=== PATIENT | female | born 1930 | race Caucasian/White ===

== ENCOUNTER 2016-11-24 14:34 | Emergency (ER) | payer MEDICARE, OTHER ==
[2016-11-24] MEDS ORDERED: SODIUM CHLORIDE 0.9% 1,000 ML IV STA ×2 (14:41)
[2016-11-24 14:45] VITALS: RESP 18
--- NOTE | 2016-11-24 14:46 | ED ---
Nausea/Vomiting/Diarrhea HPI - General Stated complaint: hypertension Time Seen by Provider: 11/24/16 14:34 Source: patient, RN notes reviewed, old records reviewed - History of Present Illness Initial comments: This is a 86-year-old female history of hypertension who states she woke up feeling nauseated this morning. She's had nausea and vomiting. She was seen by visiting nurse this morning and found have a blood pressure 160/82. EMS was called because the symptoms she was found have a blood pressure 199/100 she denies any fevers chills or sweats no chest pain no shortness of breath no overt abdominal pain at this time. Of note she was just discharged from the hospital a week ago after being treated for pneumonia. She currently is not nauseated she was not given any anti-nausea medication per EMS. She does deny any headache dizziness blurry vision or other symptoms at this time. MD complaint: nausea, vomiting - Related Data Home Medications Medication Instructions Recorded Confirmed ALPRAZolam [Xanax] 0.5 mg PO BID 11/24/16 11/24/16 Aspirin 81 mg PO QAM 11/24/16 11/24/16 Atenolol [Tenormin] 25 mg PO HS 11/24/16 11/24/16 Cholecalciferol (Vitamin D3) 2,000 unit PO DAILY 11/24/16 11/24/16 [Vitamin D3] Clopidogrel [Plavix] 75 mg PO DAILY 11/24/16 11/24/16 Fluticasone Nasal [place] [Flonase 1 spr EA NOSTRIL DAILY 11/24/16 11/24/16 Nasal [place]] Gabapentin [Neurontin] 300 mg PO DAILY 11/24/16 11/24/16 Losartan [Cozaar] 50 mg PO DAILY 11/24/16 11/24/16 Memantine HCl/Donepezil HCl 1 cap PO DAILY 11/24/16 11/24/16 [Namzaric Titration Pack] Nitroglycerin Sl Tabs [Nitrostat] 0.4 mg SUBLINGUAL Q5M PRN 11/24/16 11/24/16 Sertraline [Zoloft] 50 mg PO PC-BRKFST 11/24/16 11/24/16 Simvastatin [Zocor] 40 mg PO DAILY 11/24/16 11/24/16 cloNIDine 0.2 MG/24HR PATCH 1 patch TRANSDERM FR 11/24/16 11/24/16 [Catapres-TTS] cloNIDine HCL [Catapres] 0.1 mg PO DAILY PRN 11/24/16 11/24/16 metFORMIN HCL 1,000 mg PO BID 11/24/16 11/24/16 Previous Rx's Medication Instructions Recorded Magnesium 200 mg PO DAILY #14 tablet 11/24/16 Allergies Allergy/AdvReac Type Severity Reaction Status Date / Time No Known Allergies Allergy Verified 11/24/16 15:45 Review of Systems ROS Statement: Those systems with pertinent positive or pertinent negative responses have been documented in the HPI. ROS Other: All systems not noted in ROS Statement are negative. General Exam - General Exam Comments Initial Comments: This is a well-developed well-nourished awake alert oriented 3 female General appearance: alert, in no apparent distress Head exam: Present: atraumatic, normocephalic, normal inspection Eye exam: Present: normal appearance, PERRL, EOMI. Absent: scleral icterus, conjunctival injection, periorbital swelling ENT exam: Present: mucous membranes dry Neck exam: Present: normal inspection. Absent: tenderness, meningismus, lymphadenopathy Respiratory exam: Present: normal lung sounds bilaterally. Absent: respiratory distress, wheezes, rales, rhonchi, stridor Cardiovascular Exam: Present: regular rate, normal rhythm, normal heart sounds. Absent: systolic murmur, diastolic murmur, rubs, gallop, clicks GI/Abdominal exam: Present: soft, normal bowel sounds. Absent: distended, tenderness, guarding, rebound, rigid Extremities exam: Present: normal inspection, full ROM, normal capillary refill. Absent: tenderness, pedal edema, joint swelling, calf tenderness Back exam: Present: normal inspection Neurological exam: Present: alert, oriented X3, CN II-XII intact Psychiatric exam: Present: normal affect, normal mood Skin exam: Present: warm, dry, intact, normal color. Absent: rash Course Vital Signs 11/24/16 11/24/16 11/24/16 14:37 15:00 16:38 Temperature 97.7 F Pulse Rate 65 60 60 Respiratory 18 18 18 Rate Blood Pressure 202/99 170/82 166/87 O2 Sat by Pulse 96 98 Oximetry 11/24/16 17:13 Temperature Pulse Rate 61 Respiratory 18 Rate Blood Pressure 147/76 O2 Sat by Pulse 96 Oximetry Medical Decision Making - Medical Decision Making The patient is feeling much improved at this time I did discuss findings with her and her family member was present. Magnesium is 1.4 she has mildly elevated lipase at 368. Patient be discharged with follow-up with her doctor and return when necessary the patient was noted be able ably without any difficulty whatsoever. She has no further symptoms. - Lab Data Result diagrams: 11/24/16 14:47 11/24/16 14:47 Lab Results 11/24/16 11/24/16 11/24/16 Range/Units 14:47 14:47 14:47 WBC 11.3 H (3.8-10.6) k/uL RBC 4.18 (3.80-5.40) m/uL Hgb 12.4 (11.4-16.0) gm/dL Hct 38.4 (34.0-46.0) % MCV 92.0 (80.0-100.0) fL MCH 29.7 (25.0-35.0) pg MCHC 32.3 (31.0-37.0) g/dL RDW 13.1 (11.5-15.5) % Plt Count 326 (150-450) k/uL Neutrophils % 73 % Lymphocytes % 20 % Monocytes % 4 % Eosinophils % 1 % Basophils % 0 % Neutrophils # 8.2 H (1.3-7.7) k/uL Lymphocytes # 2.3 (1.0-4.8) k/uL Monocytes # 0.5 (0-1.0) k/uL Eosinophils # 0.1 (0-0.7) k/uL Basophils # 0.0 (0-0.2) k/uL Sodium 137 (137-145) mmol/L Potassium 4.6 (3.5-5.1) mmol/L Chloride 101 (98-107) mmol/L Carbon Dioxide 20 L (22-30) mmol/L Anion Gap 16 mmol/L BUN 13 (7-17) mg/dL Creatinine 0.67 (0.52-1.04) mg/dL Est GFR (MDRD) Af Amer >60 (>60 ml/min/1.73 sqM) Est GFR (MDRD) Non-Af >60 (>60 ml/min/1.73 sqM) Glucose 191 H (74-99) mg/dL Calcium 9.7 (8.4-10.2) mg/dL Magnesium 1.4 L (1.6-2.3) mg/dL Total Bilirubin 0.2 (0.2-1.3) mg/dL AST 26 (14-36) U/L ALT 30 (9-52) U/L Alkaline Phosphatase 76 (38-126) U/L Total Creatine Kinase 23 L (30-135) U/L CK-MB (CK-2) 0.4 (0.0-2.4) ng/mL CK-MB (CK-2) Rel Index 1.7 Total Protein 7.5 (6.3-8.2) g/dL Albumin 4.1 (3.5-5.0) g/dL Amylase 81 (30-110) U/L Lipase 368 H (23-300) U/L - EKG Data -: EKG Interpreted by Or EKG shows normal: sinus rhythm (Sinus rhythm rate is 65. Interval 188 QRS 86 QT /QTC of 42/[address]-T wave changes.) - Radiology Data Radiology results: report reviewed (I did review the imaging and reports no acute findings.), image reviewed Disposition Clinical Impression: Gastritis, Nausea & vomiting, Dehydration, Hypomagnesemia, Hypertension Disposition: HOME SELF-CARE Condition: Good Instructions: Hypomagnesemia (ED), Dehydration (ED), Gastritis (ED) Prescriptions: Magnesium 200 mg PO DAILY #14 tablet Referrals: Caleb Schafer MD [Primary Care Provider] - 1-2 days
[2016-11-24] MEDS ORDERED: ONDANSETRON 4 MG/2 ML VIAL IVP STA (14:56)
[2016-11-24 15:02] LABS: Basophils % (A) 0 %; CH 29.3; Eosinophils # (A) 0.1 k/uL (0-0.7); Eosinophils % (A) 1 %; HCT 38.4 % (34.0-46.0); HDW 2.32; HGB 12.4 gm/dL (11.4-16.0); Luc # (Auto) 0.15; Luc % (Auto) 1; Lymphocytes # (A) 2.3 k/uL (1.0-4.8); Lymphocytes % (A) 20 %; MCH 29.7 pg (25.0-35.0); MCHC 32.3 g/dL (31.0-37.0); Mean Platelet Volume 7.7; Monocytes # (A) 0.5 k/uL (0-1.0); Monocytes % (A) 4 %; Neutrophils # (A) 8.2 k/uL (1.3-7.7); Neutrophils % (A) 73 %; RBC 4.18 m/uL (3.80-5.40); RDW 13.1 % (11.5-15.5); WBC 11.3 k/uL (3.8-10.6); WBC (Perox) 11.21
[2016-11-24 15:10] LABS: ALT 30 U/L (9-52); AST 26 U/L (14-36); Alkaline Phosphatase 76 U/L (38-126); Amylase 81 U/L (30-110); Anion Gap 16 mmol/L; Blood Urea Nitrogen 13 mg/dL (7-17); Calcium 9.7 mg/dL (8.4-10.2); Carbon Dioxide 20 mmol/L (22-30); Chloride 101 mmol/L (98-107); Glucose 191 mg/dL (74-99); Magnesium 1.4 mg/dL (1.6-2.3); Non-African American GFR(MDRD) >60 (>60 ml/min/1.73 sqM); Potassium 4.6 mmol/L (3.5-5.1); Sodium 137 mmol/L (137-145); Total Bilirubin 0.2 mg/dL (0.2-1.3); Total Protein 7.5 g/dL (6.3-8.2)
[2016-11-24 15:29] LABS: Creatine Kinase MB 0.4 ng/mL (0.0-2.4)
--- NOTE | 2016-11-24 15:31 | XR ---
EXAMINATION TYPE: XR chest 2V DATE OF EXAM: 11/24/2016 COMPARISON: None HISTORY: Cough and recent pneumonia TECHNIQUE: Frontal and lateral views of the chest are obtained. FINDINGS: There is no focal air space opacity, pleural effusion, or pneumothorax seen. The cardiac silhouette size is within normal limits. The osseous structures are intact. Mild degenerative [place] of the thoracic spine are noted. Hypertrophic changes of the distal first ribs. Moderate calcifica tions of the descending thoracic aorta. IMPRESSION: No acute cardiopulmonary process. No focal consolidation to suggest pneumonia.
[2016-11-24 17:14] VITALS: BP 147/76; PULSE 61
[2016-11-24 17:42] LABS: Appearance,Urine Clear (Clear); Bilirubin,Urine Negative (Negative); Glucose,Urine (UA) Negative (Negative); Ketones,Urine Negative (Negative); Leukocyte Esterase,Urine Negative (Negative); Nitrite,Urine Negative (Negative); Particle Count 797; Protein,Urine 2+ (Negative); RBC,Urine 3 /hpf (0-5); Specific Gravity,Urine 1.011 (1.001-1.035); Squamous Epithelial Cell,Urine <1 /hpf (0-4); UA Billing (MACRO vs. MICRO) MICRO; Urobilinogen,Urine <2.0 mg/dL (<2.0); WBC,Urine 1 /hpf (0-5)
[2016-11-24 17:46] VITALS: TEMP 98.8
== END 2016-11-24 17:43 | disposition home or self-care (01) ==
LOC: EC 14:34
DX: K29.70 Gastritis, unspecified, without bleeding (principal); E86.0 Dehydration; I10 Essential (primary) hypertension; E83.42 Hypomagnesemia; Z79.82 Long term (current) use of aspirin; Z79.01 Long term (current) use of anticoagulants; Z79.84 Long term (current) use of oral hypoglycemic drugs; Z79.899 Other long term (current) drug therapy
CPT/HCPCS: 36415; 93005; 80053; 82150; 82550; 82553; 83690; 83735; 85025; 81001; 71020; 99284; 96374; 96361 ×3; J2405

== ENCOUNTER 2017-04-25 00:55 | Inpatient (IN) | payer MEDICARE, OTHER ==
[2017-04-25 02:26] LABS: Basophils # (A) 0.1 k/uL (0-0.2); Basophils % (A) 1 %; Eosinophils # (A) 0.2 k/uL (0-0.7); Eosinophils % (A) 2 %; HCT 33.5 % (34.0-46.0); HGB 9.9 gm/dL (11.4-16.0); Hypochromasia Slight; Lymphocytes # (A) 3.9 k/uL (1.0-4.8); Lymphocytes % (A) 36 %; MCH 26.3 pg (25.0-35.0); MCHC 29.5 g/dL (31.0-37.0); MCV 89.1 fL (80.0-100.0); Mean Platelet Volume 7.4; Monocytes # (A) 0.6 k/uL (0-1.0); Monocytes % (A) 6 %; Neutrophils # (A) 6.1 k/uL (1.3-7.7); Neutrophils % (A) 55 %; Platelet Count 374 k/uL (150-450); RBC 3.76 m/uL (3.80-5.40); RDW 13.4 % (11.5-15.5)
[2017-04-25 02:32] LABS: Partial Thromboplastin Time 22.2 sec (22.0-30.0); Prothrombin Time 9.7 sec (9.0-12.0)
[2017-04-25 02:33] LABS: ALT 13 U/L (9-52); AST 18 U/L (14-36); Albumin 3.7 g/dL (3.5-5.0); Alkaline Phosphatase 77 U/L (38-126); Anion Gap 14 mmol/L; Blood Urea Nitrogen 16 mg/dL (7-17); Calcium 9.8 mg/dL (8.4-10.2); Carbon Dioxide 27 mmol/L (22-30); Chloride 102 mmol/L (98-107); Glucose 172 mg/dL (74-99); Potassium 4.4 mmol/L (3.5-5.1); Sodium 143 mmol/L (137-145); Total Bilirubin 0.1 mg/dL (0.2-1.3); Total Protein 6.9 g/dL (6.3-8.2)
[2017-04-25 02:56] LABS: Creatine Kinase MB 0.5 ng/mL (0.0-2.4); Troponin I 0.032 ng/mL (0.000-0.034)
--- NOTE | 2017-04-25 03:39 | ED ---
GI Bleed HPI - General Chief complaint: GI Bleed Stated complaint: rectal bleeding Time Seen by Provider: 04/25/17 01:21 Source: patient, EMS Mode of arrival: EMS Limitations: no limitations - History of Present Illness Initial comments: This patient is an 86-year-old woman who presents to be evaluated for rectal bleeding. The patient states that the symptoms had come on tonight. She had a bowel movement and noticed that there was a moderate amount of dark red blood that she had passed. The patient subsequently had another bowel movement and when there was blood associated with this when she informed her daughter then had her brought to the emergency department for evaluation. The patient states that she is otherwise not having any symptoms. She denies chest pain, dyspnea, diaphoresis, palpitations, lightheadedness or syncope. She is not having any abdominal or perianal pains. She did have a similar episode last year, and states that she was admitted at [facility] for that episode. MD complaint: gross hematochezia -: hour(s) Severity scale (1-10): 0 Quality: painless Consistency: intermittent Improves with: none Worsens with: none Context: history of GI bleed Associated Symptoms: denies other symptoms Treatments Prior to Arrival: none - Related Data Home Medications Medication Instructions Recorded Confirmed ALPRAZolam [Xanax] 0.5 mg PO BID 11/24/16 11/24/16 Aspirin 81 mg PO QAM 11/24/16 11/24/16 Atenolol [Tenormin] 25 mg PO HS 11/24/16 11/24/16 Cholecalciferol (Vitamin D3) 2,000 unit PO DAILY 11/24/16 11/24/16 [Vitamin D3] Clopidogrel [Plavix] 75 mg PO DAILY 11/24/16 11/24/16 Fluticasone Nasal [place] [Flonase 1 spr EA NOSTRIL DAILY 11/24/16 11/24/16 Nasal [place]] Gabapentin [Neurontin] 300 mg PO DAILY 11/24/16 11/24/16 Losartan [Cozaar] 50 mg PO DAILY 11/24/16 11/24/16 Memantine HCl/Donepezil HCl 1 cap PO DAILY 11/24/16 11/24/16 [Namzaric Titration Pack] Nitroglycerin Sl Tabs [Nitrostat] 0.4 mg SUBLINGUAL Q5M PRN 11/24/16 11/24/16 Sertraline [Zoloft] 50 mg PO PC-BRKFST 11/24/16 11/24/16 Simvastatin [Zocor] 40 mg PO DAILY 11/24/16 11/24/16 cloNIDine 0.2 MG/24HR PATCH 1 patch TRANSDERM FR 11/24/16 11/24/16 [Catapres-TTS] cloNIDine HCL [Catapres] 0.1 mg PO DAILY PRN 11/24/16 11/24/16 metFORMIN HCL 1,000 mg PO BID 11/24/16 11/24/16 Previous Rx's Medication Instructions Recorded Magnesium 200 mg PO DAILY #14 tablet 11/24/16 Allergies Allergy/AdvReac Type Severity Reaction Status Date / Time No Known Allergies Allergy Verified 11/24/16 15:45 Review of Systems ROS Statement: Those systems with pertinent positive or pertinent negative responses have been documented in the HPI. ROS Other: All systems not noted in ROS Statement are negative. Constitutional: Denies: fever, chills, weakness Respiratory: Denies: cough, dyspnea Cardiovascular: Denies: chest pain, palpitations, orthopnea, edema, syncope Gastrointestinal: Reports: hematochezia. Denies: abdominal pain, vomiting, diarrhea, hematemesis, melena Genitourinary: Denies: dysuria, hematuria Musculoskeletal: Denies: back pain Skin: Denies: rash Neurological: Denies: headache, weakness, numbness Hematological/Lymphatic: Denies: easy bleeding Past Medical History Past Medical History: Hypertension, Pneumonia, Rheumatoid Arthritis (RA) Additional Past Medical History / Comment(s): Vaginal mass History of Any Multi-Drug Resistant Organisms: MRSA Date of last positivie culture/infection: 2014 MDRO Source:: shoulder Past Surgical History: Appendectomy, Cholecystectomy, Hernia Repair Past Psychological History: No Psychological Hx Reported Smoking Status: Never smoker Past Alcohol Use History: None Reported Past Drug Use History: None Reported General Exam Limitations: no limitations General appearance: alert, in no apparent distress Head exam: Present: atraumatic, normocephalic Eye exam: Present: normal appearance. Absent: scleral icterus, conjunctival injection Respiratory exam: Present: normal lung sounds bilaterally. Absent: respiratory distress, wheezes, rales, rhonchi, stridor Cardiovascular Exam: Present: regular rate, normal rhythm, normal heart sounds. Absent: systolic murmur, diastolic murmur, rubs, gallop GI/Abdominal exam: Present: soft, normal bowel sounds. Absent: distended, tenderness, guarding, rebound, rigid, mass, pulsatile mass, hernia Rectal exam: Present: normal inspection, normal rectal tone, hemorrhoids (Small external hemorrhoid without evidence of acute bleeding), other (There is a small amount of dark red blood on exam). Absent: decreased rectal tone, mass, tenderness Extremities exam: Present: normal inspection, normal capillary refill. Absent: pedal edema, calf tenderness Back exam: Present: normal inspection. Absent: CVA tenderness (R), CVA tenderness (L) Neurological exam: Present: alert Skin exam: Present: warm, dry, intact, normal color. Absent: rash Course Vital Signs 04/25/17 04/25/17 04/25/17 01:00 02:00 03:17 Temperature 98.4 F Pulse Rate 60 54 L 54 L Respiratory 16 16 18 Rate Blood Pressure 170/74 141/81 125/65 O2 Sat by Pulse 96 95 95 Oximetry Medical Decision Making - Medical Decision Making This patient is an 86-year-old woman presenting with dark red blood per rectum. She is hemodynamically stable. Patient is admitted under her primary physician, and he requests GI consultation. Type and crossmatch performed. To have serial H&H. - Lab Data Result diagrams: 04/25/17 01:08 04/25/17 01:08 Lab Results 04/25/17 04/25/17 04/25/17 Range/Units 01:08 01:08 01:08 WBC 11.0 H (3.8-10.6) k/uL RBC 3.76 L (3.80-5.40) m/uL Hgb 9.9 L (11.4-16.0) gm/dL Hct 33.5 L (34.0-46.0) % MCV 89.1 (80.0-100.0) fL MCH 26.3 (25.0-35.0) pg MCHC 29.5 L (31.0-37.0) g/dL RDW 13.4 (11.5-15.5) % Plt Count 374 (150-450) k/uL Neutrophils % 55 % Lymphocytes % 36 % Monocytes % 6 % Eosinophils % 2 % Basophils % 1 % Neutrophils # 6.1 (1.3-7.7) k/uL Lymphocytes # 3.9 (1.0-4.8) k/uL Monocytes # 0.6 (0-1.0) k/uL Eosinophils # 0.2 (0-0.7) k/uL Basophils # 0.1 (0-0.2) k/uL Hypochromasia Slight PT (9.0-12.0) sec INR (<1.2) APTT (22.0-30.0) sec Sodium 143 (137-145) mmol/L Potassium 4.4 (3.5-5.1) mmol/L Chloride 102 (98-107) mmol/L Carbon Dioxide 27 (22-30) mmol/L Anion Gap 14 mmol/L BUN 16 (7-17) mg/dL Creatinine 0.90 (0.52-1.04) mg/dL Est GFR (MDRD) Af Amer >60 (>60 ml/min/1.73 sqM) Est GFR (MDRD) Non-Af 59 (>60 ml/min/1.73 sqM) Glucose 172 H (74-99) mg/dL Calcium 9.8 (8.4-10.2) mg/dL Total Bilirubin 0.1 L (0.2-1.3) mg/dL AST 18 (14-36) U/L ALT 13 (9-52) U/L Alkaline Phosphatase 77 (38-126) U/L Total Creatine Kinase 29 L (30-135) U/L CK-MB (CK-2) 0.5 (0.0-2.4) ng/mL CK-MB (CK-2) Rel Index 1.7 Troponin I 0.032 (0.000-0.034) ng/mL Total Protein 6.9 (6.3-8.2) g/dL Albumin 3.7 (3.5-5.0) g/dL 04/25/17 Range/Units 01:08 WBC (3.8-10.6) k/uL RBC (3.80-5.40) m/uL Hgb (11.4-16.0) gm/dL Hct (34.0-46.0) % MCV (80.0-100.0) fL MCH (25.0-35.0) pg MCHC (31.0-37.0) g/dL RDW (11.5-15.5) % Plt Count (150-450) k/uL Neutrophils % % Lymphocytes % % Monocytes % % Eosinophils % % Basophils % % Neutrophils # (1.3-7.7) k/uL Lymphocytes # (1.0-4.8) k/uL Monocytes # (0-1.0) k/uL Eosinophils # (0-0.7) k/uL Basophils # (0-0.2) k/uL Hypochromasia PT 9.7 (9.0-12.0) sec INR 1.0 (<1.2) APTT 22.2 (22.0-30.0) sec Sodium (137-145) mmol/L Potassium (3.5-5.1) mmol/L Chloride (98-107) mmol/L Carbon Dioxide (22-30) mmol/L Anion Gap mmol/L BUN (7-17) mg/dL Creatinine (0.52-1.04) mg/dL Est GFR (MDRD) Af Amer (>60 ml/min/1.73 sqM) Est GFR (MDRD) Non-Af (>60 ml/min/1.73 sqM) Glucose (74-99) mg/dL Calcium (8.4-10.2) mg/dL Total Bilirubin (0.2-1.3) mg/dL AST (14-36) U/L ALT (9-52) U/L Alkaline Phosphatase (38-126) U/L Total Creatine Kinase (30-135) U/L CK-MB (CK-2) (0.0-2.4) ng/mL CK-MB (CK-2) Rel Index Troponin I (0.000-0.034) ng/mL Total Protein (6.3-8.2) g/dL Albumin (3.5-5.0) g/dL - EKG Data -: EKG Interpreted by [facility] EKG shows normal: sinus rhythm, axis (Normal), intervals (Normal), QRS complexes (Normal), ST-T waves (Normal) Rate: bradycardia (Rate 58 bpm) Disposition Clinical Impression: Gastrointestinal hemorrhage Disposition: ADMITTED IP TO THIS [facility] Condition: Good Referrals: Caleb Schafer MD [Primary Care Provider] - 1-2 days
[2017-04-25] MEDS ORDERED: NALOXONE 0.4 MG/ML 1 ML VIAL IV PRN ×2 (03:40→03:43)
[2017-04-25] MEDS ORDERED: ONDANSETRON 4 MG/2 ML VIAL IVP PRN (03:44)
[2017-04-25] MEDS ORDERED: ACETAMINOPHEN TAB 325 MG TAB PO PRN (03:44)
[2017-04-25] MEDS: SODIUM CHLORIDE 0.9% 1,000 ML IV SCH ×3 (04:26→20:17)
[2017-04-25 04:48] LABS: Glucose,Whole Blood 134 mg/dL (75-99)
[2017-04-25 05:35] LABS: Basophils % (A) 0 %; Eosinophils # (A) 0.2 k/uL (0-0.7); Eosinophils % (A) 2 %; HCT 28.5 % (34.0-46.0); HGB 8.8 gm/dL (11.4-16.0); Hypochromasia Slight; Lymphocytes # (A) 3.7 k/uL (1.0-4.8); Lymphocytes % (A) 33 %; MCH 27.1 pg (25.0-35.0); MCHC 30.7 g/dL (31.0-37.0); MCV 88.2 fL (80.0-100.0); Mean Platelet Volume 7.7; Monocytes # (A) 0.7 k/uL (0-1.0); Monocytes % (A) 6 %; Neutrophils # (A) 6.4 k/uL (1.3-7.7); Neutrophils % (A) 57 %; Platelet Count 321 k/uL (150-450); RBC 3.23 m/uL (3.80-5.40); RDW 13.4 % (11.5-15.5); WBC 11.1 k/uL (3.8-10.6)
[2017-04-25 05:39] LABS: Anion Gap 10 mmol/L; Blood Urea Nitrogen 18 mg/dL (7-17); Calcium 9.2 mg/dL (8.4-10.2); Carbon Dioxide 26 mmol/L (22-30); Chloride 103 mmol/L (98-107); Glucose 126 mg/dL (74-99); Sodium 139 mmol/L (137-145)
[2017-04-25 05:44] LABS: Potassium 5.1 mmol/L (3.5-5.1)
--- NOTE | 2017-04-25 08:46 | P.CNPUL ---
History of Present Illness Consult date: 04/25/17 Reason for consult: other Chief complaint: GI bleed History of present illness: Consult dated 04/25/2017 This is an 86-year-old female who presented to the emergency department with complaints of rectal bleeding. The patient states that her symptoms came on 1 night prior to admission. She had a bowel movement and noticed that there was a moderate amount of dark red blood that past. She had a subsequent bowel movement in the same thing happened. Her daughter apparently brought her to the emergency room for that reason. Denies any abdominal pain and cramping. Denies any fever chills. No shortness breath chest pain nausea vomiting or diarrhea. Apparently did have a similar episode a year ago. Not sure what the outcome of that episode was. I did speak to the ER doctor last night. Because she was hemodynamically stable and because she did not have a coagulopathy based on PT/INR and PTT, and because she was not having any additional bleeding in the emergency room, we decided to admit her to 6 selective. There is no beds there she came to the ICU as an overflow patient. She certainly pretty stable this morning. Review of Systems A 12 point review of system is positive for all lately GI bleed. She is asymptomatic otherwise and never had any abdominal pain or discomfort. Past Medical History Past Medical History: Dementia, Diabetes Mellitus, Hypertension, Pneumonia, Rheumatoid Arthritis (RA) Additional Past Medical History / Comment(s): Vaginal mass; MRSA 2014 (right shoulder); Systemic Lupus; Angina History of Any Multi-Drug Resistant Organisms: MRSA Date of last positivie culture/infection: 2014 MDRO Source:: shoulder Past Surgical History: Appendectomy, Cholecystectomy, Hernia Repair Past Anesthesia/Blood Transfusion Reactions: No Reported Reaction Past Psychological History: No Psychological Hx Reported Smoking Status: Never smoker Past Alcohol Use History: None Reported Past Drug Use History: None Reported - Past Family History Son(s) Additional Family Medical History / Comment(s): multiple sclerosis Medications and Allergies Home Medications Medication Instructions Recorded Confirmed Type ALPRAZolam [Xanax] 0.5 mg PO BID 11/24/16 11/24/16 History Aspirin 81 mg PO QAM 11/24/16 11/24/16 History Atenolol [Tenormin] 25 mg PO HS 11/24/16 11/24/16 History Cholecalciferol (Vitamin D3) 2,000 unit PO DAILY 11/24/16 11/24/16 History [Vitamin D3] Clopidogrel [Plavix] 75 mg PO DAILY 11/24/16 11/24/16 History Fluticasone Nasal [place] [Flonase 1 spr EA NOSTRIL DAILY 11/24/16 11/24/16 History Nasal [place]] Gabapentin [Neurontin] 300 mg PO DAILY 11/24/16 11/24/16 History Losartan [Cozaar] 50 mg PO DAILY 11/24/16 11/24/16 History Magnesium 200 mg PO DAILY #14 tablet 11/24/16 Rx Memantine HCl/Donepezil HCl 1 cap PO DAILY 11/24/16 11/24/16 History [Namzaric Titration Pack] Nitroglycerin Sl Tabs [Nitrostat] 0.4 mg SUBLINGUAL Q5M PRN 11/24/16 11/24/16 History Sertraline [Zoloft] 50 mg PO PC-BRKFST 11/24/16 11/24/16 History Simvastatin [Zocor] 40 mg PO DAILY 11/24/16 11/24/16 History cloNIDine 0.2 MG/24HR PATCH 1 patch TRANSDERM FR 11/24/16 11/24/16 History [Catapres-TTS] cloNIDine HCL [Catapres] 0.1 mg PO DAILY PRN 11/24/16 11/24/16 History metFORMIN HCL 1,000 mg PO BID 11/24/16 11/24/16 History Allergies Allergy/AdvReac Type Severity Reaction Status Date / Time No Known Allergies Allergy Verified 11/24/16 15:45 Physical Exam Osteopathic Statement: *. No significant issues noted on an osteopathic structural exam other than those noted in the History and Physical/Consult. Vitals: Vital Signs Temp Pulse Pulse Resp BP BP Pulse Ox 04/25/17 04:27 97.8 F 57 L 18 127/58 96 04/25/17 04:17 97.8 F 54 L 14 125/62 04/25/17 03:17 54 L 18 125/65 95 04/25/17 02:00 54 L 16 141/81 95 04/25/17 01:00 98.4 F 60 16 170/74 96 Intake and Output 04/24/17 04/25/17 04/25/17 22:59 06:59 14:59 Intake Total 125 Balance 125 Intake: IV 125 Sodium Chloride 0.9% 1, 125 000 ml @ 125 mls/hr IV . Q8H [facility] Rx#:[id number] Other: Voiding Method Bedpan # Voids 1 Weight 84.7 kg No acute distress, oriented 3. Color is a bit pale. HEENT examination is grossly unremarkable. Mucous membranes are moist. No oral lesions. Neck supple. Full range of motion. No adenopathy thyromegaly or neck vein distention. Cardiovascular examination reveals regular rhythm rate. S1-S2 normal. No S3 or S4. No discernible murmur noted. Lungs reveal clear breath sounds. Her sounds are equal bilaterally. No adventitious lung sounds including wheezes rhonchi or crackles. Abdomen soft bowel sounds are heard. No masses or tenderness. Extremities are intact. No cyanosis clubbing or edema. Skin is without rash or lesion. Neurologic examination is brief but nonfocal. Results - Laboratory Findings CBC and BMP: 04/25/17 05:07 04/25/17 05:07 PT/INR, D-dimer PT 9.7 sec (9.0-12.0) 04/25/17 01:08 INR 1.0 (<1.2) 04/25/17 01:08 Abnormal lab findings: Abnormal Labs 04/25/17 04/25/17 04/25/17 01:08 01:08 01:08 WBC 11.0 H RBC 3.76 L Hgb 9.9 L Hct 33.5 L MCHC 29.5 L BUN Glucose 172 H POC Glucose (mg/dL) Total Bilirubin 0.1 L Total Creatine Kinase 29 L 04/25/17 04/25/17 04/25/17 04:44 05:07 05:07 WBC 11.1 H RBC 3.23 L Hgb 8.8 L Hct 28.5 L MCHC 30.7 L BUN 18 H Glucose 126 H POC Glucose (mg/dL) 134 H Total Bilirubin Total Creatine Kinase - Diagnostic Findings Chest x-ray: image reviewed (Labs x-rays a medications are reviewed.) Assessment and Plan Assessment: Assessment GI bleed, likely lower in nature Anemia, secondary to GI bleed. History of hypertension Hyperlipidemia Diabetes Diabetic neuropathy History of rheumatoid arthritis Previous history of MRSA infection Status post appendectomy, cholecystectomy, and hernia repair Plan: Plan dated 04/25/2017 The patient was admitted to the ICU as a 6 selective overflow. The patient seemed to be relatively stable. We'll continue to follow the patient closely. We'll monitor vital signs blood test, and other testing. Patient seemed relatively stable. Not having any difficulty breathing coughing wheezing chest pain chest discomfort palpitations nausea vomiting or diarrhea. No episodes of GI bleed so far this morning. Hemodynamics and respiratory status are stable. Time with Patient: Greater than 30
--- NOTE | 2017-04-25 08:55 | P.CONS ---
History of Present Illness - Reason for Consult Consult date: 04/25/17 GI bleed hematochezia Requesting physician: Caleb Schafer - History of Present Illness 86-year-old female patient Dr. Schafer with a past medical history of mild dementia, diabetes mellitus, rheumatoid arthritis, MRSA, lupus, and hypertension. Presents with acute onset painless bright red burgundy-colored bowel movements that started yesterday. She passed several incontinent bloody bowel movements. She has similar presentation about a year ago but subsided without intervention. No history of colonoscopy; flexible sigmoidoscopy more than 30 years ago. No aspirin and NSAIDs or alcohol. Denies fever chills or melena hematochezia weight loss or abdominal pain. Admission hemoglobin 9.9 presently 8.8. Platelets 321. White count 11. BUN 18. Creatinine 0.8. INR 1.0. Hemoglobin October 2016 was 12.4. Review of Systems Constitutional: Denies fever, chills, sweats, weight gain, or loss. History of dementia. HEENT: Negative for migraines, blurred vision or loss, earaches, drainage, tinnitus, oral mucosal lesions, dysphagia, or odynophagia. CARDIAC: History of hypertension. Negative for chest pain, arrhythmias, or palpitation. RESPIRATORY: History of pneumonia. Negative for shortness of breath, hemoptysis , cough, or sputum production. GI: See HPI for pertinent findings. : Negative for hematuria, urgency, frequency, polyuria, or dysuria. GYNc: Denies possibility of . Negative vaginal discharge. MUSCULOSKELETAL: Negative for muscle aches, swelling, arthritis, and arthralgias. NEUROLOGIC: Negative for stroke or TIA. ENDOCRINE: Diabetes mellitus. Negative for thyroid problems. SKIN: History of MRSA. Negative for rash or itching. PSYCHIATRIC: Negative history for depression and anxiety Past Medical History Past Medical History: Dementia, Diabetes Mellitus, Hypertension, Pneumonia, Rheumatoid Arthritis (RA) Additional Past Medical History / Comment(s): Vaginal mass; MRSA 2014 (right shoulder); Systemic Lupus; Angina History of Any Multi-Drug Resistant Organisms: MRSA Year Discovered:: 2014 MDRO Source:: shoulder Past Surgical History: Appendectomy, Cholecystectomy, Hernia Repair Past Anesthesia/Blood Transfusion Reactions: No Reported Reaction Past Psychological History: No Psychological Hx Reported Smoking Status: Never smoker Past Alcohol Use History: None Reported Past Drug Use History: None Reported - Past Family History Son(s) Additional Family Medical History / Comment(s): multiple sclerosis Medications and Allergies Home Medications Medication Instructions Recorded Confirmed Type ALPRAZolam [Xanax] 1 mg PO HS 11/24/16 04/25/17 History Atenolol [Tenormin] 25 mg PO HS 11/24/16 04/25/17 History Cholecalciferol (Vitamin D3) 2,000 unit PO DAILY 11/24/16 04/25/17 History [Vitamin D3] Clopidogrel [Plavix] 75 mg PO DAILY 11/24/16 04/25/17 History Fluticasone Nasal [place] [Flonase 1 spr EA NOSTRIL DAILY 11/24/16 04/25/17 History Nasal Piru] Gabapentin [Neurontin] 300 mg PO TID 11/24/16 04/25/17 History Losartan [Cozaar] 50 mg PO DAILY 11/24/16 04/25/17 History Memantine HCl/Donepezil HCl 1 cap PO DAILY 11/24/16 04/25/17 History [Namzaric Titration Pack] Nitroglycerin Sl Tabs [Nitrostat] 0.4 mg SUBLINGUAL Q5M PRN 11/24/16 04/25/17 History Sertraline [Zoloft] 50 mg PO PC-BRKFST 11/24/16 04/25/17 History Simvastatin [Zocor] 40 mg PO HS 11/24/16 04/25/17 History cloNIDine 0.2 MG/24HR PATCH 1 patch TRANSDERM TH 11/24/16 04/25/17 History [Catapres-TTS] cloNIDine HCL [Catapres] 0.1 mg PO DAILY PRN 11/24/16 04/25/17 History metFORMIN HCL 1,000 mg PO BID 11/24/16 04/25/17 History Allergies Allergy/AdvReac Type Severity Reaction Status Date / Time No Known Allergies Allergy Verified 04/25/17 08:46 Physical Exam Vitals: Vital Signs Temp Pulse Pulse Resp BP BP Pulse Ox 04/25/17 04:27 97.8 F 57 L 18 127/58 96 04/25/17 04:17 97.8 F 54 L 14 125/62 04/25/17 03:17 54 L 18 125/65 95 04/25/17 02:00 54 L 16 141/81 95 04/25/17 01:00 98.4 F 60 16 170/74 96 Intake and Output 04/24/17 04/25/17 04/25/17 22:59 06:59 14:59 Intake Total 125 Balance 125 Intake: IV 125 Sodium Chloride 0.9% 1, 125 000 ml @ 125 mls/hr IV . Q8H [facility] Rx#:[id number] Other: Voiding Method Bedpan # Voids 1 Weight 84.7 kg General appearance: The patient is alert, oriented, in no acute distress. HET: Head is normocephalic and atraumatic. Pupils are equal and reactive. Oropharynx is clear without lesions. Neck: Supple without lymphadenopathy. Trachea midline. Heart: S1 S2. Regular rate and rhythm. Lungs: No crackles or wheezes are heard. Abdomen: Soft, nontender, nondistended with bowel sounds. No peritoneal signs. No palpable organomegaly or masses. Extremities: Normal skin color and turgor. No cyanosis, rash, ulceration, clubbing, or edema. Radial and pedal pulses are 2/4 bilaterally. Neurological: No focal deficits. Strength and sensation are grossly intact. Rectal: No palpable masses or gross amount of burgundy-colored stool on finger. Results CBC & Chem 7: 04/25/17 05:07 04/25/17 05:07 Labs: Abnormal Lab Results - Last 24 Hours (Table) 04/25/17 04/25/17 04/25/17 Range/Units 01:08 01:08 01:08 WBC 11.0 H (3.8-10.6) k/uL RBC 3.76 L (3.80-5.40) m/uL Hgb 9.9 L (11.4-16.0) gm/dL Hct 33.5 L (34.0-46.0) % MCHC 29.5 L (31.0-37.0) g/dL BUN (7-17) mg/dL Glucose 172 H (74-99) mg/dL POC Glucose (mg/dL) (75-99) mg/dL Total Bilirubin 0.1 L (0.2-1.3) mg/dL Total Creatine Kinase 29 L (30-135) U/L 04/25/17 04/25/17 04/25/17 Range/Units 04:44 05:07 05:07 WBC 11.1 H (3.8-10.6) k/uL RBC 3.23 L (3.80-5.40) m/uL Hgb 8.8 L (11.4-16.0) gm/dL Hct 28.5 L (34.0-46.0) % MCHC 30.7 L (31.0-37.0) g/dL BUN 18 H (7-17) mg/dL Glucose 126 H (74-99) mg/dL POC Glucose (mg/dL) 134 H (75-99) mg/dL Total Bilirubin (0.2-1.3) mg/dL Total Creatine Kinase (30-135) U/L Assessment and Plan (1) Gastrointestinal hemorrhage Narrative/Plan: 86-year-old female admitted with acute onset of painless burgundy-colored bowel movements possible colonic diverticular bleed possible neoplasia possible colitis. Current Visit: Yes Status: Acute Code(s): K92.2 - GASTROINTESTINAL HEMORRHAGE, UNSPECIFIED SNOMED Code(s): 89979453 (2) Acute blood loss anemia Current Visit: Yes Status: Acute Code(s): D62 - ACUTE POSTHEMORRHAGIC ANEMIA SNOMED Code(s): 432919446 Plan: 1. CBC every 6 hours. 2. Clear liquid diet. 3. Patient and daughter requesting endoscopic evaluation therefore colonoscopy scheduled tomorrow. 4. GI prophylaxis. The pre press manager has discussed the risks, benefits and alternative therapies for the above-mentioned procedure and for both sedation/analgesia as well as necessary blood product administration, if indicated, as they pertain to this patient. The patient has indicated understanding and acceptance of the risks and procedures discussed.t Thank you for this kind referral and the opportunity to participate in the care of your patient. This consultation was discussed with Dr. Chung. The impression and plan of care have been directed as dictated.
[2017-04-25] MEDS: LOSARTAN 50 MG TAB PO SCH (09:12)
[2017-04-25] MEDS: GABAPENTIN 300 MG CAP PO SCH (09:12)
[2017-04-25] MEDS: MAGNESIUM OXIDE 400 MG TAB PO SCH (09:12)
[2017-04-25] MEDS: FAMOTIDINE 20 MG TAB PO SCH ×2 (09:12→21:15)
[2017-04-25] MEDS: metFORMIN 500 MG TAB PO SCH ×2 (09:12→20:14)
[2017-04-25] MEDS: ATORVASTATIN 20 MG TAB PO SCH (09:12)
[2017-04-25] MEDS: ALPRAZolam 0.5 MG TAB PO SCH ×2 (09:18→20:16)
[2017-04-25] MEDS: GABAPENTIN 100 MG CAP PO SCH ×3 (10:23→20:14)
--- NOTE | 2017-04-25 11:21 | P.HPIM ---
History of Present Illness 86-year-old female presented emergency room with complaints of sudden onset of bloody diarrhea. Patient denies nausea vomiting or abdominal pain. Hemoglobin on admission 9.9 as decreased 8.8. A consult with the Dr. Chung's group decision made for colonoscopy for tomorrow. Dr. Rivera will do during critical care management while in ICU. Patient is an overflow selective care Review of Systems Gastrointestinal: Reports diarrhea, Reports hematochezia Past Medical History Past Medical History: Dementia, Diabetes Mellitus, Hypertension, Pneumonia, Rheumatoid Arthritis (RA) Additional Past Medical History / Comment(s): Vaginal mass; MRSA 2014 (right shoulder); Systemic Lupus; Angina History of Any Multi-Drug Resistant Organisms: MRSA Date of last positivie culture/infection: 2014 MDRO Source:: shoulder Past Surgical History: Appendectomy, Cholecystectomy, Hernia Repair Past Anesthesia/Blood Transfusion Reactions: No Reported Reaction Past Psychological History: No Psychological Hx Reported Smoking Status: Never smoker Past Alcohol Use History: None Reported Past Drug Use History: None Reported - Past Family History Son(s) Additional Family Medical History / Comment(s): multiple sclerosis Medications and Allergies Home Medications Medication Instructions Recorded Confirmed Type ALPRAZolam [Xanax] 1 mg PO HS 11/24/16 04/25/17 History Atenolol [Tenormin] 25 mg PO HS 11/24/16 04/25/17 History Cholecalciferol (Vitamin D3) 2,000 unit PO DAILY 11/24/16 04/25/17 History [Vitamin D3] Clopidogrel [Plavix] 75 mg PO DAILY 11/24/16 04/25/17 History Fluticasone Nasal [place] [Flonase 1 spr EA NOSTRIL DAILY 11/24/16 04/25/17 History Nasal Vesuvius] Gabapentin [Neurontin] 300 mg PO TID 11/24/16 04/25/17 History Losartan [Cozaar] 50 mg PO DAILY 11/24/16 04/25/17 History Memantine HCl/Donepezil HCl 1 cap PO DAILY 11/24/16 04/25/17 History [Namzaric Titration Pack] Nitroglycerin Sl Tabs [Nitrostat] 0.4 mg SUBLINGUAL Q5M PRN 11/24/16 04/25/17 History Sertraline [Zoloft] 50 mg PO PC-BRKFST 11/24/16 04/25/17 History Simvastatin [Zocor] 40 mg PO HS 11/24/16 04/25/17 History cloNIDine 0.2 MG/24HR PATCH 1 patch TRANSDERM TH 11/24/16 04/25/17 History [Catapres-TTS] cloNIDine HCL [Catapres] 0.1 mg PO DAILY PRN 11/24/16 04/25/17 History metFORMIN HCL 1,000 mg PO BID 11/24/16 04/25/17 History Allergies Allergy/AdvReac Type Severity Reaction Status Date / Time No Known Allergies Allergy Verified 04/25/17 08:46 Physical Exam Vitals: Vital Signs Temp Pulse Pulse Resp BP BP Pulse Ox 04/25/17 08:00 18 04/25/17 04:27 97.8 F 57 L 18 127/58 96 04/25/17 04:17 97.8 F 54 L 14 125/62 04/25/17 03:17 54 L 18 125/65 95 04/25/17 02:00 54 L 16 141/81 95 04/25/17 01:00 98.4 F 60 16 170/74 96 Intake and Output 04/24/17 04/25/17 04/25/17 22:59 06:59 14:59 Intake Total 125 Balance 125 Intake: IV 125 Sodium Chloride 0.9% 1, 125 000 ml @ 125 mls/hr IV . Q8H [facility] Rx#:[id number] Other: Voiding Method Bedpan Incontinent # Voids 1 Weight 84.7 kg 84.7 kg Patient Weight 04/26/17 06:59 Weight 84.7 kg - Constitutional General appearance: obese - EENT Eyes: PERRLA ENT: normal oropharynx Ears: bilateral: normal - Neck Neck: normal ROM - Respiratory Respiratory: bilateral: CTA - Cardiovascular Rhythm: regular - Gastrointestinal General gastrointestinal: soft - Integumentary Integumentary: normal - Neurologic Neurologic: CNII-XII intact - Psychiatric Psychiatric: A&O x's 3, appropriate affect, intact judgment & insight Results CBC & Chem 7: 04/25/17 05:07 04/25/17 05:07 Labs: Abnormal Lab Results - Last 24 Hours (Table) 04/25/17 04/25/17 04/25/17 Range/Units 01:08 01:08 01:08 WBC 11.0 H (3.8-10.6) k/uL RBC 3.76 L (3.80-5.40) m/uL Hgb 9.9 L (11.4-16.0) gm/dL Hct 33.5 L (34.0-46.0) % MCHC 29.5 L (31.0-37.0) g/dL BUN (7-17) mg/dL Glucose 172 H (74-99) mg/dL POC Glucose (mg/dL) (75-99) mg/dL Total Bilirubin 0.1 L (0.2-1.3) mg/dL Total Creatine Kinase 29 L (30-135) U/L 04/25/17 04/25/17 04/25/17 Range/Units 04:44 05:07 05:07 WBC 11.1 H (3.8-10.6) k/uL RBC 3.23 L (3.80-5.40) m/uL Hgb 8.8 L (11.4-16.0) gm/dL Hct 28.5 L (34.0-46.0) % MCHC 30.7 L (31.0-37.0) g/dL BUN 18 H (7-17) mg/dL Glucose 126 H (74-99) mg/dL POC Glucose (mg/dL) 134 H (75-99) mg/dL Total Bilirubin (0.2-1.3) mg/dL Total Creatine Kinase (30-135) U/L Thrombosis Risk Factor Assmnt - Choose All That Apply Any of the Below Risk Factors Present?: Yes Each Factor Represents 1 point: Medical pt on bed rest, Obesity (BMI >25) Other Risk Factors: Yes Each Risk Factor Represents 3 Points: Age 75 years or older, History of DVT/PE Thrombosis Risk Factor Assessment Total Risk Factor Score: 8 Thrombosis Risk Factor Assessment Level: High Risk Assessment and Plan Plan: Assessment Rectal bleeding Anemia secondary to GI bleed History of coronary disease Diabetes with peripheral neuropathy Anxiety/depression Hyperlipidemia Mild dementia history of appendectomy cholecystectomy and hernia repair Hypertension Rheumatoid arthritis Patient denies ibuprofen or aspirin use states she takes Tylenol 3 for pain Plan Consultation with Dr. Borges for rectal bleeding colonoscopy planned for tomorrow Continue consultation with Dr. Rivera while in critical care Serial hemoglobin
[2017-04-25 12:11] LABS: Basophils % (A) 0 %; Eosinophils # (A) 0.2 k/uL (0-0.7); Eosinophils % (A) 2 %; HCT 25.3 % (34.0-46.0); HGB 7.7 gm/dL (11.4-16.0); Hypochromasia Slight; Lymphocytes # (A) 2.8 k/uL (1.0-4.8); Lymphocytes % (A) 28 %; MCH 26.5 pg (25.0-35.0); MCHC 30.3 g/dL (31.0-37.0); MCV 87.3 fL (80.0-100.0); Mean Platelet Volume 8.3; Monocytes # (A) 0.5 k/uL (0-1.0); Monocytes % (A) 5 %; Neutrophils # (A) 6.4 k/uL (1.3-7.7); Neutrophils % (A) 64 %; Platelet Count 258 k/uL (150-450); RDW 13.9 % (11.5-15.5); WBC 9.9 k/uL (3.8-10.6)
[2017-04-25] MEDS ORDERED: PEG 3350-NA SULF,BICARB,CL/KCL 4,000 ML BOTTLE PO ONE (16:00)
[2017-04-25] MEDS: cloNIDine HCL 0.1 MG TAB PO PRN (19:04)
[2017-04-25] MEDS ORDERED: cloNIDine 0.2 MG/24HR PATCH 1 PATCH PATCH TRANSDERM ONE (19:34)
[2017-04-25] MEDS: ATENOLOL 25 MG TAB PO SCH (19:50)
[2017-04-25 20:15] LABS: Glucose,Whole Blood 122 mg/dL (75-99)
[2017-04-25] MEDS: Acetaminophen-Codeine 300-30mg TAB PO PRN (21:49)
[2017-04-26] MEDS: SODIUM CHLORIDE 0.9% 1,000 ML IV SCH ×2 (03:45→17:12)
[2017-04-26 04:43] LABS: Basophils % (A) 0 %; Eosinophils # (A) 0.1 k/uL (0-0.7); Eosinophils % (A) 2 %; HCT 32.8 % (34.0-46.0); HGB 10.2 gm/dL (11.4-16.0); Hypochromasia Slight; Lymphocytes # (A) 2.5 k/uL (1.0-4.8); Lymphocytes % (A) 32 %; MCHC 31.2 g/dL (31.0-37.0); MCV 86.7 fL (80.0-100.0); Mean Platelet Volume 6.9; Monocytes # (A) 0.5 k/uL (0-1.0); Monocytes % (A) 6 %; Neutrophils # (A) 4.6 k/uL (1.3-7.7); Neutrophils % (A) 59 %; Platelet Count 251 k/uL (150-450); RBC 3.79 m/uL (3.80-5.40); WBC 7.8 k/uL (3.8-10.6)
[2017-04-26 04:45] LABS: Anion Gap 10 mmol/L; Carbon Dioxide 29 mmol/L (22-30); Chloride 106 mmol/L (98-107); Glucose 136 mg/dL (74-99); Potassium 4.4 mmol/L (3.5-5.1); Sodium 145 mmol/L (137-145)
[2017-04-26 04:46] LABS: Blood Urea Nitrogen 11 mg/dL (7-17); Calcium 9.2 mg/dL (8.4-10.2); Phosphorus 3.7 mg/dL (2.5-4.5)
[2017-04-26] MEDS: cloNIDine HCL 0.1 MG TAB PO PRN ×2 (06:13→15:05)
[2017-04-26] MEDS: MAGNESIUM SULFATE-D5W PMX 1 GM in DEXTROSE/WATER 1 100ML.BAG IVPB SCH ×2 (06:13→07:55)
[2017-04-26] MEDS: ATORVASTATIN 20 MG TAB PO SCH (07:56)
[2017-04-26] MEDS: ALPRAZolam 0.5 MG TAB PO SCH ×2 (07:56→21:40)
[2017-04-26] MEDS: FAMOTIDINE 20 MG TAB PO SCH ×2 (07:56→21:39)
[2017-04-26] MEDS: GABAPENTIN 100 MG CAP PO SCH ×3 (07:57→21:39)
[2017-04-26] MEDS: LOSARTAN 50 MG TAB PO SCH (07:57)
[2017-04-26] MEDS: metFORMIN 500 MG TAB PO SCH ×2 (07:57→21:39)
[2017-04-26] MEDS: MAGNESIUM OXIDE 400 MG TAB PO SCH (07:57)
--- NOTE | 2017-04-26 09:01 | P.PN ---
Subjective Progress Note Date: 04/26/17 Principal diagnosis: GI bleed Progress note dated 04/26/2017 This is a 86-year-old female who I saw consultation yesterday. She came in what was thought to be a lower GI bleed. She had anemia secondary to GI bleed hypertension hyperlipidemia diabetes with diabetic neuropathy rheumatoid arthritis previous history of MRSA infection and previous appendectomy cholecystectomy and hernia repair. The patient currently is doing reasonably well. She is scheduled to have a colonoscopy today. She did have some additional bleeding overnight and she did receive 2 units of packed red blood cells. Her IV is currently saline at 125 mL an hour. Her perspective, she's doing well. She denies any abdominal pain or cramping. No additional bleeding this morning. She denies any chest pain chest discomfort shortness of breath cough wheezing or diarrhea. She might be able to be discharged to the floor once her colonoscopies performed and there is no evidence of active bleeding. We'll get her a bed just in case. Other than that, she is doing well. Objective - Vital Signs Vital signs: Vital Signs Temp 97.7 F 04/26/17 08:00 Pulse 56 L 04/26/17 08:00 Resp 31 H 04/26/17 08:00 BP 160/79 04/26/17 08:00 Pulse Ox 96 04/26/17 08:00 Intake & Output 04/25/17 04/26/17 04/26/17 18:59 06:59 18:59 Intake Total 500 4535 225 Output Total 1000 2 Balance -500 4533 225 Weight 84.7 kg 85.1 kg Intake: IV 500 1995 125 PRBC 620 Sodium Chloride 0.9% 1, 500 1375 125 000 ml @ 125 mls/hr IV . Q8H [facility] Rx#:[id number] Intake, IV Titration 100 Amount Magnesium Sulfate-D5w Pmx 100 1 gm In Dextrose/Water 1 100ml.bag @ 100 mls/hr IVPB Q1H [facility] Rx#: [id number] Oral 1920 Blood Product 0 620 Rc As-1 Unit 310 [id number] Rc As-3 Unit 0 310 [id number] Output: Urine 1000 Stool 2 Other: Voiding Method Incontinent Incontinent # Voids 1 2 1 # Bowel Movements 2 - Exam No acute distress, oriented 3. HEENT examination is grossly unremarkable. Mucous membranes are moist. No oral lesions. Neck supple. Full range of motion. No adenopathy thyromegaly or neck vein distention. Cardiovascular examination reveals regular rhythm rate. S1-S2 normal. No S3 or S4. No discernible murmur noted. Lungs reveal clear breath sounds. Her sounds are equal bilaterally. No adventitious lung sounds including wheezes rhonchi or crackles. Abdomen soft bowel sounds are heard. No masses or tenderness. Extremities are intact. No cyanosis clubbing or edema. Skin is without rash or lesion. Neurologic examination is brief but nonfocal. - Labs CBC & Chem 7: 04/26/17 04:08 04/26/17 04:08 Labs: Abnormal Lab Results - Last 24 Hours (Table) 04/25/17 04/25/17 04/25/17 Range/Units 01:08 11:57 20:13 RBC 2.90 L (3.80-5.40) m/uL Hgb 7.7 L (11.4-16.0) gm/dL Hct 25.3 L (34.0-46.0) % MCHC 30.3 L (31.0-37.0) g/dL Glucose (74-99) mg/dL POC Glucose (mg/dL) 122 H (75-99) mg/dL Crossmatch See Detail 04/26/17 04/26/17 Range/Units 04:08 04:08 RBC 3.79 L (3.80-5.40) m/uL Hgb 10.2 L (11.4-16.0) gm/dL Hct 32.8 L (34.0-46.0) % MCHC (31.0-37.0) g/dL Glucose 136 H (74-99) mg/dL POC Glucose (mg/dL) (75-99) mg/dL Crossmatch Assessment and Plan Assessment: Assessment GI bleed, likely lower in nature Anemia, secondary to GI bleed, status post 2 units PRBCs with anticipated colonoscopy on April 26 History of hypertension Hyperlipidemia Diabetes Diabetic neuropathy History of rheumatoid arthritis Previous history of MRSA infection Status post appendectomy, cholecystectomy, and hernia repair Plan: Plan dated 04/25/2017 The patient was admitted to the ICU as a 6 selective overflow. The patient seemed to be relatively stable. We'll continue to follow the patient closely. We'll monitor vital signs blood test, and other testing. Patient seemed relatively stable. Not having any difficulty breathing coughing wheezing chest pain chest discomfort palpitations nausea vomiting or diarrhea. No episodes of GI bleed so far this morning. Hemodynamics and respiratory status are stable. Plan dated 04/26/2017 The patient did receive 2 units of packed red blood cells. The patient is scheduled for colonoscopy today with the GI services. The patient otherwise is doing real well. No additional bleeding this morning. The patient may be able to be discharged to the general medical floor post colonoscopy if the findings are benign. The patient clinically looks well. The patient is not complaining of any additional bleeding abdominal pain abdominal discomfort or cramping. Time with Patient: Less than 30
[2017-04-26 09:12] LABS: Glucose,Whole Blood 178 mg/dL (75-99)
[2017-04-26] MEDS ORDERED: LIDOCAINE 1% INJ 10MG/ML (20 ML MDV) ONE (09:35)
[2017-04-26] MEDS ORDERED: IV FLUID CONTINUATION 1,000 ML IV ONE (09:35)
[2017-04-26] MEDS ORDERED: PROPOFOL 10 MG/ML 20 ML VIAL IV ONE (09:35)
--- NOTE | 2017-04-26 09:57 | P.PCN ---
Date of Procedure: 04/26/17 Procedure(s) Performed: BRIEF HISTORY: Patient is a 86-year-old pleasant white female, admitted to the hospital with acute lower GI bleed. She had multiple episodes of burgundy- colored stools for 2 days. Hemoglobin dropped from 10-7.5 g/dL. No history of colonoscopy in the past. She is hence scheduled for a colonoscopy as a part of evaluation of acute lower GI bleed. PROCEDURE PERFORMED: Colonoscopy with snare polypectomy. PREOPERATIVE DIAGNOSIS: Acute lower GI bleed. IV sedation per Anesthesia. PROCEDURE: After informed consent was obtained, the patient, was brought into the endoscopy unit. IV sedation was administered by Anesthesia under continuous monitoring. Digital rectal examination was normal. Initially the Olympus CF- 160 flexible video colonoscope was then inserted in the rectum, gradually advanced into the cecum without any difficulty. Careful examination was performed as the scope was gradually being withdrawn. Ileocecal valve and the appendiceal orifice were visualized and appeared normal. Prep was excellent. Mucosa of the cecum, ascending colon, transverse colon, descending colon, appeared normal in the sigmoid colon there were 2 polyps measuring 1 segment in size both of which were removed by snare polypectomy. There were diffuse diverticula cyst noted throughout the entire colon more predominant in the left colon. No active bleeding noted. The sigmoid colon, and rectum appeared normal. Retroflexion was performed in the rectum and small internal hemorrhoids were seen. The patient tolerated the procedure well. IMPRESSION: Once limited times to sigmoid colon polyps status post polypectomy Diffuse scattered diverticulosis Small internal hemorrhoids RECOMMENDATIONS: Findings of this examination were discussed with the patient as well as a family. He was lightly patient had an acute diverticular bleed that has spontaneously resolved. She was advised to follow with the biopsy results. That'll be advanced as tolerated.
--- NOTE | 2017-04-26 10:57 | P.PN ---
Subjective General resting in bed continues to be in ICU. Noted report from colonoscopy no active bleed hemoglobin 10.2 after transfusion 2. Patient stable for transfer to medical floor Objective - Vital Signs Vital signs: Vital Signs Temp 97.7 F 04/26/17 08:00 Pulse 53 L 04/26/17 09:00 Resp 29 H 04/26/17 09:00 BP 171/78 04/26/17 09:00 Pulse Ox 96 04/26/17 09:00 Intake & Output 04/25/17 04/26/17 04/26/17 18:59 06:59 18:59 Intake Total 500 4535 550 Output Total 1000 2 Balance -500 4533 550 Weight 84.7 kg 85.1 kg Intake: IV 500 1995 450 PRBC 620 Sodium Chloride 0.9% 1, 500 1375 250 000 ml @ 125 mls/hr IV . Q8H [facility] Rx#:[id number] Intake, IV Titration 100 Amount Magnesium Sulfate-D5w Pmx 100 1 gm In Dextrose/Water 1 100ml.bag @ 100 mls/hr IVPB Q1H [facility] Rx#: [id number] Oral 1920 Blood Product 0 620 Rc As-1 Unit 310 [id number] Rc As-3 Unit 0 310 [id number] Output: Urine 1000 Stool 2 Other: Voiding Method Incontinent Incontinent Incontinent # Voids 1 2 1 # Bowel Movements 2 - Constitutional General appearance: Present: obese - EENT Eyes: Present: PERRLA Ears: bilateral: normal - Neck Neck: Present: normal ROM - Respiratory Respiratory: bilateral: CTA - Cardiovascular Rhythm: regular - Gastrointestinal General gastrointestinal: Present: soft - Integumentary Integumentary: Present: normal - Neurologic Neurologic: Present: CNII-XII intact - Psychiatric Psychiatric: Present: A&O x's 3, appropriate affect, intact judgment & insight - Labs CBC & Chem 7: 04/26/17 04:08 04/26/17 04:08 Labs: Abnormal Lab Results - Last 24 Hours (Table) 04/25/17 04/25/17 04/25/17 Range/Units 01:08 11:57 20:13 RBC 2.90 L (3.80-5.40) m/uL Hgb 7.7 L (11.4-16.0) gm/dL Hct 25.3 L (34.0-46.0) % MCHC 30.3 L (31.0-37.0) g/dL Glucose (74-99) mg/dL POC Glucose (mg/dL) 122 H (75-99) mg/dL Crossmatch See Detail 04/26/17 04/26/17 04/26/17 Range/Units 04:08 04:08 09:08 RBC 3.79 L (3.80-5.40) m/uL Hgb 10.2 L (11.4-16.0) gm/dL Hct 32.8 L (34.0-46.0) % MCHC (31.0-37.0) g/dL Glucose 136 H (74-99) mg/dL POC Glucose (mg/dL) 178 H (75-99) mg/dL Crossmatch Assessment and Plan Plan: Assessment Gastroenteritis test all hemorrhage rectal probable diverticular rupture Anemia secondary to GI bleed Hyperlipidemia Dementia Post colonoscopy Transfusion 2 History of appendectomy cholecystectomy and hernia repair Diabetes with peripheral neuropathy Plan No active bleeding at this time he will attempt 0.2 Patient may transfer to medical floor We'll continue to monitor hemoglobin Continue consultation with gastroenterology
[2017-04-26] MEDS: Acetaminophen-Codeine 300-30mg TAB PO PRN ×2 (11:15→21:36)
[2017-04-26] MEDS: GABAPENTIN 300 MG CAP PO SCH (17:15)
[2017-04-26 17:18] LABS: Glucose,Whole Blood 120 mg/dL (75-99)
[2017-04-26 21:18] LABS: Glucose,Whole Blood 168 mg/dL (75-99)
[2017-04-26] MEDS: ATENOLOL 25 MG TAB PO SCH (21:39)
[2017-04-27 06:56] LABS: Glucose,Whole Blood 161 mg/dL (75-99)
[2017-04-27] MEDS ORDERED: cloNIDine 0.2 MG/24HR PATCH 1 PATCH PATCH TRANSDERM SCH (09:00)
[2017-04-27] MEDS: ATORVASTATIN 20 MG TAB PO SCH (09:42)
[2017-04-27] MEDS: ALPRAZolam 0.5 MG TAB PO SCH ×2 (09:42→21:00)
[2017-04-27] MEDS: MAGNESIUM OXIDE 400 MG TAB PO SCH (09:42)
[2017-04-27] MEDS: metFORMIN 500 MG TAB PO SCH ×2 (09:42→21:00)
[2017-04-27] MEDS: FAMOTIDINE 20 MG TAB PO SCH ×2 (09:42→21:00)
[2017-04-27] MEDS: GABAPENTIN 100 MG CAP PO SCH ×3 (09:42→21:00)
[2017-04-27] MEDS: LOSARTAN 50 MG TAB PO SCH (09:42)
[2017-04-27 10:27] LABS: Basophils % (A) 0 %; Eosinophils # (A) 0.1 k/uL (0-0.7); Eosinophils % (A) 1 %; HCT 29.8 % (34.0-46.0); HGB 9.3 gm/dL (11.4-16.0); Hypochromasia Slight; Lymphocytes # (A) 2.2 k/uL (1.0-4.8); Lymphocytes % (A) 25 %; MCH 27.2 pg (25.0-35.0); MCHC 31.2 g/dL (31.0-37.0); MCV 87.2 fL (80.0-100.0); Mean Platelet Volume 7.7; Monocytes # (A) 0.8 k/uL (0-1.0); Monocytes % (A) 9 %; Neutrophils # (A) 5.5 k/uL (1.3-7.7); Neutrophils % (A) 63 %; Platelet Count 248 k/uL (150-450); RBC 3.42 m/uL (3.80-5.40); RDW 14.1 % (11.5-15.5); WBC 8.8 k/uL (3.8-10.6)
--- NOTE | 2017-04-27 10:50 | P.PN ---
Subjective Progress Note Date: 04/27/17 Principal diagnosis: Gi bleed 86-year-old female seen around 10am this morning admitted with acute painless rectal bleeding status post colonoscopy yesterday with findings of diffuse colonic diverticulosis with sigmoid polypectomy 2. Presently denies abdominal pain however she had a very large burgundy multiple clot bowel movement. Hemoglobin yesterday 10.3. Afebrile. Blood pressure 172/76. Objective - Vital Signs Vital signs: Vital Signs Temp 98.6 F 04/27/17 07:00 Pulse 60 04/27/17 10:40 Resp 16 04/27/17 07:00 BP 129/61 04/27/17 10:40 Pulse Ox 95 04/27/17 10:09 Intake & Output 04/26/17 04/27/17 04/27/17 18:59 06:59 18:59 Intake Total 690 1200 120 Balance 690 1200 120 Weight 85.1 kg Intake: IV 590 Sodium Chloride 0.9% 1, 390 000 ml @ 125 mls/hr IV . Q8H DEVANTE Rx#:[id number] Intake, IV Titration 100 Amount Magnesium Sulfate-D5w Pmx 100 1 gm In Dextrose/Water 1 100ml.bag @ 100 mls/hr IVPB Q1H DEVANTE Rx#: [id number] Oral 1200 120 Other: Voiding Method Incontinent Incontinent # Voids 1 1 1 # Bowel Movements 1 - Exam General appearance: The patient is alert, oriented, in no acute distress. Hard of hearing. HET: Head is normocephalic and atraumatic. Pupils are equal and reactive. Oropharynx is clear without lesions. Neck: Supple without lymphadenopathy. Trachea midline. Heart: S1 S2. Regular rate and rhythm. Lungs: No crackles or wheezes are heard. Abdomen: Soft, nontender, nondistended with bowel sounds. No peritoneal signs. No palpable organomegaly or masses. Extremities: Normal skin color and turgor. No cyanosis, rash, ulceration, clubbing, or edema. Radial and pedal pulses are 2/4 bilaterally. Neurological: No focal deficits. Strength and sensation are grossly intact. - Labs CBC & Chem 7: 04/27/17 10:14 04/26/17 04:08 Labs: Abnormal Lab Results - Last 24 Hours (Table) 04/26/17 04/26/17 04/27/17 Range/Units 17:16 21:14 06:55 RBC (3.80-5.40) m/uL Hgb (11.4-16.0) gm/dL Hct (34.0-46.0) % POC Glucose (mg/dL) 120 H 168 H 161 H (75-99) mg/dL 04/27/17 Range/Units 10:14 RBC 3.42 L (3.80-5.40) m/uL Hgb 9.3 L (11.4-16.0) gm/dL Hct 29.8 L (34.0-46.0) % POC Glucose (mg/dL) (75-99) mg/dL Assessment and Plan (1) Gastrointestinal hemorrhage Narrative/Plan: 86-year-old female admitted with acute onset of painless burgundy-colored bowel movements secondary to colonic diverticulosis status post colonoscopy with sigmoid polypectomy 2. Active GI bleed patient passed a very large burgundy multiple clot bowel movement this morning suspect recurrent diverticular bleed possible polypectomy bleed possible combination of both. Current Visit: Yes Status: Acute Code(s): K92.2 - GASTROINTESTINAL HEMORRHAGE, UNSPECIFIED SNOMED Code(s): 77898719 (2) Acute blood loss anemia Current Visit: Yes Status: Acute Code(s): D62 - ACUTE POSTHEMORRHAGIC ANEMIA SNOMED Code(s): 327856115 Plan: 1. Stat CBC then every 6 hours 24 hours. Blood transfusion as clincally indicated. 2. Nothing by mouth except medications ice chips sparingly. 3. Recommend general surgical consultation this was discussed with Dr. Andrea's service nurse practitioner Conchita Dubose. 4. Transfer to monitored floor ICU per attending recommendations. Assesment and plan of care discussed with Dr. Cantor
--- NOTE | 2017-04-27 11:36 | P.PN ---
Subjective Progress Note Date: 04/27/17 Principal diagnosis: GI bleeding Progress note dated 04/26/2017 This is a 86-year-old female who I saw consultation yesterday. She came in what was thought to be a lower GI bleed. She had anemia secondary to GI bleed hypertension hyperlipidemia diabetes with diabetic neuropathy rheumatoid arthritis previous history of MRSA infection and previous appendectomy cholecystectomy and hernia repair. The patient currently is doing reasonably well. She is scheduled to have a colonoscopy today. She did have some additional bleeding overnight and she did receive 2 units of packed red blood cells. Her IV is currently saline at 125 mL an hour. Her perspective, she's doing well. She denies any abdominal pain or cramping. No additional bleeding this morning. She denies any chest pain chest discomfort shortness of breath cough wheezing or diarrhea. She might be able to be discharged to the floor once her colonoscopies performed and there is no evidence of active bleeding. We'll get her a bed just in case. Other than that, she is doing well. On 04/27/2017 patient had reoccurrence of rectal bleeding, bright red, with some clots. Patient denies any abdominal discomfort, states she had some cramping, and felt sudden gush of bleeding from her rectum. Patient remained hemodynamically stable, denies any shortness of breath or chest pain. There is no evidence of tachycardia. Hemoglobin from this morning is 9.3, patient was transfused with you 2 units of blood yesterday. Patient underwent colonoscopy on 04/26/2017 which showed diffuse colonic diverticulosis with sigmoid polypectomy 2. She is on room air, appears to be very comfortable at rest. No further bleeding after the first episode this morning. We'll continue to monitor, GI service is following. She was transferred up to the selective care unit for closer monitoring. Objective - Vital Signs Vital signs: Vital Signs Temp 98.6 F 04/27/17 07:00 Pulse 66 04/27/17 10:58 Resp 16 04/27/17 08:00 BP 130/71 04/27/17 10:58 Pulse Ox 95 04/27/17 10:09 Intake & Output 04/26/17 04/27/17 04/27/17 18:59 06:59 18:59 Intake Total 690 1200 120 Balance 690 1200 120 Weight 85.1 kg Intake: IV 590 Sodium Chloride 0.9% 1, 390 000 ml @ 125 mls/hr IV . Q8H DEVANTE Rx#:[id number] Intake, IV Titration 100 Amount Magnesium Sulfate-D5w Pmx 100 1 gm In Dextrose/Water 1 100ml.bag @ 100 mls/hr IVPB Q1H DEVANTE Rx#: [id number] Oral 1200 120 Other: Voiding Method Incontinent Incontinent Incontinent # Voids 1 1 1 # Bowel Movements 1 - Exam No acute distress, oriented 3. HEENT examination is grossly unremarkable. Mucous membranes are moist. No oral lesions. Neck supple. Full range of motion. No adenopathy thyromegaly or neck vein distention. Cardiovascular examination reveals regular rhythm rate. S1-S2 normal. No S3 or S4. No discernible murmur noted. Lungs reveal clear breath sounds. Her sounds are equal bilaterally. No adventitious lung sounds including wheezes rhonchi or crackles. Abdomen soft bowel sounds are heard. No masses or tenderness. Extremities are intact. No cyanosis clubbing or edema. Skin is without rash or lesion. Neurologic examination is brief but nonfocal. - Labs CBC & Chem 7: 04/27/17 10:14 04/26/17 04:08 Labs: Abnormal Lab Results - Last 24 Hours (Table) 04/26/17 04/26/17 04/27/17 Range/Units 17:16 21:14 06:55 RBC (3.80-5.40) m/uL Hgb (11.4-16.0) gm/dL Hct (34.0-46.0) % POC Glucose (mg/dL) 120 H 168 H 161 H (75-99) mg/dL 04/27/17 Range/Units 10:14 RBC 3.42 L (3.80-5.40) m/uL Hgb 9.3 L (11.4-16.0) gm/dL Hct 29.8 L (34.0-46.0) % POC Glucose (mg/dL) (75-99) mg/dL Assessment and Plan Plan: Assessment: Lower GI bleeding, colonoscopy on 04/26/2017 showed diffuse diverticulosis. Polypectomy 2 was done. Anemia, secondary to GI bleed, status post 2 units PRBCs. Hemoglobin this morning is 9.3 History of hypertension Hyperlipidemia Diabetes Diabetic neuropathy History of rheumatoid arthritis Previous history of MRSA infection Status post appendectomy, cholecystectomy, and hernia repair Plan: Plan dated 04/25/2017 The patient was admitted to the ICU as a 6 selective overflow. The patient seemed to be relatively stable. We'll continue to follow the patient closely. We'll monitor vital signs blood test, and other testing. Patient seemed relatively stable. Not having any difficulty breathing coughing wheezing chest pain chest discomfort palpitations nausea vomiting or diarrhea. No episodes of GI bleed so far this morning. Hemodynamics and respiratory status are stable. Plan dated 04/26/2017 The patient did receive 2 units of packed red blood cells. The patient is scheduled for colonoscopy today with the GI services. The patient otherwise is doing real well. No additional bleeding this morning. The patient may be able to be discharged to the general medical floor post colonoscopy if the findings are benign. The patient clinically looks well. The patient is not complaining of any additional bleeding abdominal pain abdominal discomfort or cramping. On 04/27/2017 patient had on episode of large amount of bright red stools with clots, patient remained hemodynamically stable, denies any abdominal pain, just slight cramping. Denies any chest pain, or shortness of breath. Vital signs remain stable. Patient was transferred to selective care unit for further monitoring. GI service is following. From pulmonary/critical care standpoint, patient remains stable, will follow the patient on as-needed basis I performed a history & physical examination of the patient and discussed their management with my nurse practitioner, Lillie Sharma. I reviewed the nurse practitioner's note and agree with the documented findings and plan of care. Lung sounds are clear. The findings and the impression was discussed with the patient. I attest to the documentation by the nurse practitioner. Time with Patient: Less than 30
[2017-04-27 11:57] LABS: Glucose,Whole Blood 193 mg/dL (75-99)
--- NOTE | 2017-04-27 15:18 | P.GSCN ---
History of Present Illness Consult date: 04/27/17 Reason for Consult: GI bleed History of present illness: Patient with a history of Plavix for what appears to represent both peripheral and cardiac disease. Last dose of Plavix was Sunday morning. Came to the hospital with complaints of bright red blood per rectum. This began on 04/24. She states that over the years with many of her surgeries she has had easy bleeding. Yesterday she went for colonoscopy and was found to have trevizo diverticulosis and 2 polyps. Both polyps were removed. Size approximately 1 cm. This morning she had a large burgundy stool. Since that time she is only had one additional stool that was very small and had darker old blood. She is asymptomatic. Hemodynamically she has remained stable. No nausea or vomiting. She is hungry. Denies pain. Coags previously normal. She was written for 1 unit of blood to be given today. Review of Systems The patient denies any acute changes in vision or hearing, no dysphagia or odynophagia, no chest pain or shortness of breath, no dysuria or hematuria, no headache, no runny nose, no melena, no unexplained weight loss Past Medical History Past Medical History: Dementia, Diabetes Mellitus, Hypertension, Pneumonia, Rheumatoid Arthritis (RA) Additional Past Medical History / Comment(s): Vaginal mass; MRSA 2014 (right shoulder); Systemic Lupus; Angina History of Any Multi-Drug Resistant Organisms: MRSA Year Discovered:: 2014 MDRO Source:: shoulder Past Surgical History: Appendectomy, Cholecystectomy, Hernia Repair Past Anesthesia/Blood Transfusion Reactions: No Reported Reaction Past Psychological History: No Psychological Hx Reported Smoking Status: Never smoker Past Alcohol Use History: None Reported Past Drug Use History: None Reported - Past Family History Son(s) Additional Family Medical History / Comment(s): multiple sclerosis Medications and Allergies Home Medications Medication Instructions Recorded Confirmed Type ALPRAZolam [Xanax] 1 mg PO HS 11/24/16 04/25/17 History Atenolol [Tenormin] 25 mg PO HS 11/24/16 04/25/17 History Cholecalciferol (Vitamin D3) 2,000 unit PO DAILY 11/24/16 04/25/17 History [Vitamin D3] Clopidogrel [Plavix] 75 mg PO DAILY 11/24/16 04/25/17 History Fluticasone Nasal Rombauer [Flonase 1 spr EA NOSTRIL DAILY 11/24/16 04/25/17 History Nasal Rombauer] Gabapentin [Neurontin] 100 mg PO TID 11/24/16 04/25/17 History Losartan [Cozaar] 50 mg PO DAILY 11/24/16 04/25/17 History Memantine HCl/Donepezil HCl 1 cap PO DAILY 11/24/16 04/25/17 History [Namzaric Titration Pack] Nitroglycerin Sl Tabs [Nitrostat] 0.4 mg SUBLINGUAL Q5M PRN 11/24/16 04/25/17 History Sertraline [Zoloft] 50 mg PO PC-[id number] 11/24/16 04/25/17 History Simvastatin [Zocor] 40 mg PO HS 11/24/16 04/25/17 History cloNIDine 0.2 MG/24HR PATCH 1 patch TRANSDERM TH 11/24/16 04/25/17 History [Catapres-TTS] cloNIDine HCL [Catapres] 0.1 mg PO DAILY PRN 11/24/16 04/25/17 History metFORMIN HCL 1,000 mg PO BID 11/24/16 04/25/17 History Allergies Allergy/AdvReac Type Severity Reaction Status Date / Time No Known Allergies Allergy Verified 04/25/17 08:46 Surgical - Exam Vital Signs Temp Pulse Resp BP Pulse Ox 98.4 F 60 16 170/74 96 04/25/17 01:00 04/25/17 01:00 04/25/17 01:00 04/25/17 01:00 04/25/17 01:00 Physical exam: General: Well-developed, well-nourished HEENT: Normocephalic, sclerae nonicteric Abdomen: Nontender, nondistended Extremities: No edema Neuro: Alert and oriented Results - Labs 04/27/17 10:14 04/26/17 04:08 Abnormal Lab Results - Last 24 Hours (Table) 04/25/17 04/26/17 04/26/17 Range/Units 01:08 17:16 21:14 RBC (3.80-5.40) m/uL Hgb (11.4-16.0) gm/dL Hct (34.0-46.0) % POC Glucose (mg/dL) 120 H 168 H (75-99) mg/dL Crossmatch See Detail 04/27/17 04/27/17 04/27/17 Range/Units 06:55 10:14 11:45 RBC 3.42 L (3.80-5.40) m/uL Hgb 9.3 L (11.4-16.0) gm/dL Hct 29.8 L (34.0-46.0) % POC Glucose (mg/dL) 161 H 193 H (75-99) mg/dL Crossmatch Assessment and Plan (1) Gastrointestinal hemorrhage Narrative/Plan: Patient with recurrent bleeding post colonoscopy. Suspect probable polypectomy site bleed. If bleeding continues would recommend repeat colonoscopy however the patient clinically appears to have stopped. Additionally red blood cell scan is an option. Clinical scenario discussed in detail with the patient and her daughter. We'll continue to follow closely with you. Current Visit: Yes Status: Acute Code(s): K92.2 - GASTROINTESTINAL HEMORRHAGE, UNSPECIFIED SNOMED Code(s): 13521066
[2017-04-27 16:36] LABS: Basophils % (A) 0 %; Eosinophils # (A) 0.1 k/uL (0-0.7); Eosinophils % (A) 1 %; HCT 31.6 % (34.0-46.0); HGB 9.7 gm/dL (11.4-16.0); Lymphocytes % (A) 30 %; MCH 26.6 pg (25.0-35.0); MCHC 30.8 g/dL (31.0-37.0); MCV 86.2 fL (80.0-100.0); Mean Platelet Volume 7.8; Monocytes # (A) 0.7 k/uL (0-1.0); Monocytes % (A) 7 %; Neutrophils # (A) 6.1 k/uL (1.3-7.7); Neutrophils % (A) 61 %; Platelet Count 223 k/uL (150-450); RBC 3.67 m/uL (3.80-5.40); RDW 14.6 % (11.5-15.5)
[2017-04-27 16:52] LABS: Glucose,Whole Blood 127 mg/dL (75-99)
[2017-04-27 20:45] LABS: Glucose,Whole Blood 133 mg/dL (75-99)
[2017-04-27] MEDS: ATENOLOL 25 MG TAB PO SCH (21:00)
[2017-04-27 22:16] LABS: Basophils % (A) 0 %; Eosinophils # (A) 0.1 k/uL (0-0.7); Eosinophils % (A) 1 %; HCT 30.2 % (34.0-46.0); HGB 9.5 gm/dL (11.4-16.0); Lymphocytes # (A) 3.2 k/uL (1.0-4.8); Lymphocytes % (A) 29 %; MCH 27.5 pg (25.0-35.0); MCHC 31.3 g/dL (31.0-37.0); MCV 87.7 fL (80.0-100.0); Mean Platelet Volume 7.3; Monocytes # (A) 0.7 k/uL (0-1.0); Monocytes % (A) 6 %; Neutrophils # (A) 6.9 k/uL (1.3-7.7); Neutrophils % (A) 62 %; Platelet Count 249 k/uL (150-450); RBC 3.44 m/uL (3.80-5.40); RDW 14.4 % (11.5-15.5)
--- NOTE | 2017-04-27 22:28 | PN ---
PROGRESS NOTE DATE OF SERVICE: 04/27/2017 I am covering for Dr. Caleb Schafer. This 86-year-old woman was admitted with acute gastrointestinal bleed and profuse bleeding from the rectum. The patient had acute blood loss anemia. The patient was given 1 unit transfusion for symptomatic anemia. Dr. Chung has done an EGD yesterday. EGD was admitted to sigmoid colon and polypectomy was done and a few scattered diverticulosis also done with small internal hemorrhoids. The patient also had a surgical consultation by Dr. Novak today. This morning the patient had a large burgundy stool and smaller amount of darker stools was also noted. Dr. Novak has recommended repeat colonoscopy in case of repeated bleeding. The patient is closely monitored at this time. The most recent hemoglobin is 9.7. PAST MEDICAL HISTORY: Reviewed. REVIEW OF SYSTEMS: Cardiovascular: No angina. Respiration: As mentioned earlier. GI: As mentioned earlier. : No dysuria. MEDS: Current medications are reviewed and include: 1. Tylenol 650 q.6h p.r.n. 2. Tylenol #3. 3. Xanax 0.25 b.i.d. 4. Tenormin 20 mg. 5. Lipitor. 6. Catapres 0.1. 7. Pepcid. 8. Neurontin. 9. Cozaar 50 mg. 10.Magnesium oxide. 11.Glucophage 1000 mg. 12.Narcan and Zofran. PHYSICAL EXAM: Patient is alert and oriented times three. Pulse is 61, blood pressure is 137/84, respiration 18, temperature 98.2, pulse ox 93% on room air. HEENT is conjunctivae pale. Oral mucosa moist. Neck is no jugular venous distention. No carotid bruits. No lymph node enlargement. Cardiovascular: S1, S2 muffled. Respirations: Breath sounds diminished in the bases. A few rhonchi and no crackles. ABDOMEN: Soft, obese, nontender. No mass palpable. Legs no edema and no swelling. NERVOUS SYSTEM: Higher functions as mentioned earlier. Moves all four limbs. No focal deficits. Lymphatics: No lymph nodes palpable in the neck, axillae or groin. Skin: No ulcers, rashes or bleeding. LABS: WBC 10, hemoglobin 9.9, Accu-Cheks 137, 133, otherwise other labs are noted. ASSESSMENT: 1. Lower gastrointestinal bleeding and status post colonoscopy and polypectomy. 2. Possibly postpolypectomy bleeding. 3. Acute blood loss anemia, symptomatic status post transfusion. 4. Dementia. 5. Diabetes type 2. 6. Hypertension. 7. Pneumonia. 8. History of rheumatoid arthritis. 9. History of Methicillin-resistant Staphylococcus aureus. 10.History of systemic lupus erythematosus. 11.History of degenerative joint disease. 12.History of cholecystectomy. RECOMMENDATIONS AND DISCUSSION: In this 86-year-old woman who presented with multiple complex medical issues, we will monitor the patient closely. Continue to monitor hemoglobin and hematocrit. Gastroenterology and surgical evaluation noted. The patient will require a repeat colonoscopy in case of continued bleeding. Otherwise repeat labs are ordered and PT/PTT was normal. Prognosis guarded because of the multiple medical issues and discussed with the patient. Further recommendations to follow. Please also note the patient was given transfusion because of extremely symptomatic anemia and continued bleeding. I will recommend to keep holding the Plavix at this time. The patient is on select telemetry at this time. Please refer to staff notes for further details. MMODL / IJN: [id number] /
[2017-04-28 02:12] LABS: Basophils % (A) 0 %; Eosinophils # (A) 0.1 k/uL (0-0.7); Eosinophils % (A) 0 %; HCT 29.5 % (34.0-46.0); HGB 9.5 gm/dL (11.4-16.0); Hypochromasia Slight; Lymphocytes # (A) 3.2 k/uL (1.0-4.8); Lymphocytes % (A) 23 %; MCH 28.1 pg (25.0-35.0); MCHC 32.1 g/dL (31.0-37.0); MCV 87.4 fL (80.0-100.0); Mean Platelet Volume 7.5; Monocytes # (A) 0.7 k/uL (0-1.0); Monocytes % (A) 5 %; Neutrophils # (A) 9.7 k/uL (1.3-7.7); Neutrophils % (A) 70 %; Platelet Count 250 k/uL (150-450); RBC 3.37 m/uL (3.80-5.40); RDW 14.5 % (11.5-15.5); WBC 13.8 k/uL (3.8-10.6)
[2017-04-28 02:36] LABS: Anion Gap 9 mmol/L; Blood Urea Nitrogen 19 mg/dL (7-17); Calcium 8.8 mg/dL (8.4-10.2); Carbon Dioxide 22 mmol/L (22-30); Chloride 109 mmol/L (98-107); Glucose 156 mg/dL (74-99); Potassium 4.6 mmol/L (3.5-5.1); Sodium 140 mmol/L (137-145)
[2017-04-28 05:43] LABS: Glucose,Whole Blood 154 mg/dL (75-99)
[2017-04-28 07:53] LABS: Basophils # (A) 0.1 k/uL (0-0.2); Basophils % (A) 0 %; Eosinophils # (A) 0.1 k/uL (0-0.7); Eosinophils % (A) 1 %; HCT 30.2 % (34.0-46.0); HGB 9.4 gm/dL (11.4-16.0); Hypochromasia Slight; Lymphocytes # (A) 3.4 k/uL (1.0-4.8); Lymphocytes % (A) 31 %; MCH 27.6 pg (25.0-35.0); MCHC 31.1 g/dL (31.0-37.0); MCV 88.7 fL (80.0-100.0); Mean Platelet Volume 7.6; Monocytes # (A) 0.6 k/uL (0-1.0); Monocytes % (A) 6 %; Neutrophils # (A) 6.9 k/uL (1.3-7.7); Neutrophils % (A) 61 %; Platelet Count 253 k/uL (150-450); RBC 3.41 m/uL (3.80-5.40); RDW 14.6 % (11.5-15.5); WBC 11.3 k/uL (3.8-10.6)
[2017-04-28] MEDS: ALPRAZolam 0.5 MG TAB PO SCH ×2 (08:55→20:08)
[2017-04-28] MEDS: FLUTICASONE 50MCG/SPRAY NASAL 16GM EA NOSTRIL SCH ×2 (08:55→09:02)
[2017-04-28] MEDS: FAMOTIDINE 20 MG TAB PO SCH ×2 (08:56→20:08)
[2017-04-28] MEDS: ATORVASTATIN 20 MG TAB PO SCH (08:56)
[2017-04-28] MEDS: GABAPENTIN 100 MG CAP PO SCH ×3 (08:56→20:08)
[2017-04-28] MEDS: LOSARTAN 50 MG TAB PO SCH (08:56)
[2017-04-28] MEDS: MAGNESIUM OXIDE 400 MG TAB PO SCH (08:56)
[2017-04-28] MEDS: metFORMIN 500 MG TAB PO SCH ×2 (08:56→20:08)
[2017-04-28 11:57] LABS: Glucose,Whole Blood 135 mg/dL (75-99)
--- NOTE | 2017-04-28 12:59 | P.PN ---
Subjective Progress Note Date: 04/28/17 Patient is an 86-year-old white female with a history of utilizing Plavix for cardiac disease. She last took Plavix on Sunday morning. She presented to the hospital with a complaint of bright red blood per rectum. She recently had a colonoscopy which revealed pandiverticulosis and 2 polyps which were removed. The patient at this time is not having any further bloody bowel movements. Her hemoglobin today is noted to be 9.4 and is stable. The patient is feeling well , with no complaints Objective - Vital Signs Vital signs: Vital Signs Temp 97.1 F L 04/28/17 08:45 Pulse 66 04/28/17 12:40 Resp 16 04/28/17 12:40 BP 116/67 04/28/17 12:40 Pulse Ox 95 04/28/17 12:40 Intake & Output 04/27/17 04/28/17 04/28/17 18:59 06:59 18:59 Intake Total 430 0 Output Total 401 0 Balance 430 -401 0 Weight 85 kg Intake: Oral 120 0 Blood Product 310 Rc As-1 Unit 310 [id number] Output: Urine 0 0 Stool 401 0 Other: Voiding Method Incontinent Incontinent # Voids 1 1 1 # Bowel Movements 1 - Constitutional General appearance: Present: average body habitus - Respiratory Respiratory: bilateral: CTA - Cardiovascular Heart sounds: normal: S1, S2 - Gastrointestinal General gastrointestinal: Present: normal bowel sounds, soft - Psychiatric Psychiatric: Present: A&O x's 3, appropriate affect, intact judgment & insight - Labs CBC & Chem 7: 04/28/17 07:37 04/28/17 02:10 Labs: Abnormal Lab Results - Last 24 Hours (Table) 04/25/17 04/27/17 04/27/17 Range/Units 01:08 16:30 16:47 WBC (3.8-10.6) k/uL RBC 3.67 L (3.80-5.40) m/uL Hgb 9.7 L (11.4-16.0) gm/dL Hct 31.6 L (34.0-46.0) % MCHC 30.8 L (31.0-37.0) g/dL Neutrophils # (1.3-7.7) k/uL Chloride (98-107) mmol/L BUN (7-17) mg/dL Glucose (74-99) mg/dL POC Glucose (mg/dL) 127 H (75-99) mg/dL Crossmatch See Detail 04/27/17 04/27/17 04/28/17 Range/Units 20:43 22:01 02:10 WBC 11.0 H (3.8-10.6) k/uL RBC 3.44 L (3.80-5.40) m/uL Hgb 9.5 L (11.4-16.0) gm/dL Hct 30.2 L (34.0-46.0) % MCHC (31.0-37.0) g/dL Neutrophils # (1.3-7.7) k/uL Chloride 109 H (98-107) mmol/L BUN 19 H (7-17) mg/dL Glucose 156 H (74-99) mg/dL POC Glucose (mg/dL) 133 H (75-99) mg/dL Crossmatch 04/28/17 04/28/17 04/28/17 Range/Units 02:10 05:41 07:37 WBC 13.8 H 11.3 H (3.8-10.6) k/uL RBC 3.37 L 3.41 L (3.80-5.40) m/uL Hgb 9.5 L 9.4 L (11.4-16.0) gm/dL Hct 29.5 L 30.2 L (34.0-46.0) % MCHC (31.0-37.0) g/dL Neutrophils # 9.7 H (1.3-7.7) k/uL Chloride (98-107) mmol/L BUN (7-17) mg/dL Glucose (74-99) mg/dL POC Glucose (mg/dL) 154 H (75-99) mg/dL Crossmatch 04/28/17 Range/Units 11:56 WBC (3.8-10.6) k/uL RBC (3.80-5.40) m/uL Hgb (11.4-16.0) gm/dL Hct (34.0-46.0) % MCHC (31.0-37.0) g/dL Neutrophils # (1.3-7.7) k/uL Chloride (98-107) mmol/L BUN (7-17) mg/dL Glucose (74-99) mg/dL POC Glucose (mg/dL) 135 H (75-99) mg/dL Crossmatch Assessment and Plan Plan: Impression/plan: 1. 86 year-old white female status post colonoscopy with 2 polyps removed on Plavix who subsequently developed a lower GI bleed 2. No further evidence of bleeding Plan: 1. Advance diet 2. Will follow as needed, no need for acute surgical intervention at this time
[2017-04-28 14:10] LABS: Basophils % (A) 0 %; Eosinophils # (A) 0.1 k/uL (0-0.7); Eosinophils % (A) 1 %; HCT 31.4 % (34.0-46.0); HGB 9.8 gm/dL (11.4-16.0); Hypochromasia Slight; Lymphocytes # (A) 3.5 k/uL (1.0-4.8); Lymphocytes % (A) 25 %; MCH 27.8 pg (25.0-35.0); MCHC 31.3 g/dL (31.0-37.0); MCV 88.8 fL (80.0-100.0); Mean Platelet Volume 7.1; Monocytes # (A) 0.7 k/uL (0-1.0); Monocytes % (A) 5 %; Neutrophils # (A) 9.4 k/uL (1.3-7.7); Neutrophils % (A) 68 %; Platelet Count 254 k/uL (150-450); RBC 3.53 m/uL (3.80-5.40); RDW 14.9 % (11.5-15.5); WBC 13.9 k/uL (3.8-10.6)
[2017-04-28 15:51] LABS: Appearance,Urine Cloudy (Clear); Bacteria,Urine Many /hpf; Bilirubin,Urine Negative (Negative); Blood,Urine Negative (Negative); Color,Urine Yellow; Glucose,Urine (UA) Negative (Negative); Ketones,Urine Negative (Negative); Leukocyte Esterase,Urine Large (Negative); Protein,Urine Trace (Negative); RBC,Urine 6 /hpf (0-5); Specific Gravity,Urine 1.017 (1.001-1.035); Urobilinogen,Urine <2.0 mg/dL (<2.0); WBC,Urine 45 /hpf (0-5)
--- NOTE | 2017-04-28 16:05 | P.PN ---
Subjective Progress Note Date: 04/28/17 Principal diagnosis: GI bleed Progress note dated 04/26/2017 This is a 86-year-old female who I saw consultation yesterday. She came in what was thought to be a lower GI bleed. She had anemia secondary to GI bleed hypertension hyperlipidemia diabetes with diabetic neuropathy rheumatoid arthritis previous history of MRSA infection and previous appendectomy cholecystectomy and hernia repair. The patient currently is doing reasonably well. She is scheduled to have a colonoscopy today. She did have some additional bleeding overnight and she did receive 2 units of packed red blood cells. Her IV is currently saline at 125 mL an hour. Her perspective, she's doing well. She denies any abdominal pain or cramping. No additional bleeding this morning. She denies any chest pain chest discomfort shortness of breath cough wheezing or diarrhea. She might be able to be discharged to the floor once her colonoscopies performed and there is no evidence of active bleeding. We'll get her a bed just in case. Other than that, she is doing well. Progress note dated 04/28/2017 This is a 86-year-old female who was in the intensive care unit with a lower GI bleed. She has a history of hypertension hyperlipidemia diabetes diabetic neuropathy rheumatoid arthritis previous history of MRSA infection and previous appendectomy cholecystectomy and hernia repair. Patient is doing well. She moved out of the ICU. She did receive 2 units of blood. She's feeling well. No additional bleeding. From our perspective the patient has no critical care issues at this time and will likely to see her only when necessary. She denies any difficulty breathing coughing wheezing chest pain chest discomfort GI pain abdominal pain cramping or additional bleeding. Objective - Vital Signs Vital signs: Vital Signs Temp 97.1 F L 04/28/17 08:45 Pulse 66 04/28/17 12:40 Resp 16 04/28/17 12:40 BP 116/67 04/28/17 12:40 Pulse Ox 95 04/28/17 12:40 Intake & Output 04/27/17 04/28/17 04/28/17 18:59 06:59 18:59 Intake Total 430 0 Output Total 401 100 Balance 430 -401 -100 Weight 85 kg Intake: Oral 120 0 Blood Product 310 Rc As-1 Unit 310 [id number] Output: Urine 0 100 Stool 401 0 Other: Voiding Method Incontinent Incontinent Incontinent # Voids 1 1 1 # Bowel Movements 1 1 - Exam No acute distress, oriented 3. HEENT examination is grossly unremarkable. Mucous membranes are moist. No oral lesions. Neck supple. Full range of motion. No adenopathy thyromegaly or neck vein distention. Cardiovascular examination reveals regular rhythm rate. S1-S2 normal. No S3 or S4. No discernible murmur noted. Lungs reveal clear breath sounds. Her sounds are equal bilaterally. No adventitious lung sounds including wheezes rhonchi or crackles. Abdomen soft bowel sounds are heard. No masses or tenderness. Extremities are intact. No cyanosis clubbing or edema. Skin is without rash or lesion. Neurologic examination is brief but nonfocal. - Labs CBC & Chem 7: 04/28/17 13:52 04/28/17 02:10 Labs: Abnormal Lab Results - Last 24 Hours (Table) 04/27/17 04/27/17 04/27/17 Range/Units 16:30 16:47 20:43 WBC (3.8-10.6) k/uL RBC 3.67 L (3.80-5.40) m/uL Hgb 9.7 L (11.4-16.0) gm/dL Hct 31.6 L (34.0-46.0) % MCHC 30.8 L (31.0-37.0) g/dL Neutrophils # (1.3-7.7) k/uL Chloride (98-107) mmol/L BUN (7-17) mg/dL Glucose (74-99) mg/dL POC Glucose (mg/dL) 127 H 133 H (75-99) mg/dL Urine Appearance (Clear) Urine Protein (Negative) Urine Nitrite (Negative) Ur Leukocyte Esterase (Negative) Urine RBC (0-5) /hpf Urine WBC (0-5) /hpf Urine WBC Clumps (None) /hpf Urine Bacteria (None) /hpf 04/27/17 04/28/17 04/28/17 Range/Units 22:01 02:10 02:10 WBC 11.0 H 13.8 H (3.8-10.6) k/uL RBC 3.44 L 3.37 L (3.80-5.40) m/uL Hgb 9.5 L 9.5 L (11.4-16.0) gm/dL Hct 30.2 L 29.5 L (34.0-46.0) % MCHC (31.0-37.0) g/dL Neutrophils # 9.7 H (1.3-7.7) k/uL Chloride 109 H (98-107) mmol/L BUN 19 H (7-17) mg/dL Glucose 156 H (74-99) mg/dL POC Glucose (mg/dL) (75-99) mg/dL Urine Appearance (Clear) Urine Protein (Negative) Urine Nitrite (Negative) Ur Leukocyte Esterase (Negative) Urine RBC (0-5) /hpf Urine WBC (0-5) /hpf Urine WBC Clumps (None) /hpf Urine Bacteria (None) /hpf 04/28/17 04/28/17 04/28/17 Range/Units 05:41 07:37 11:56 WBC 11.3 H (3.8-10.6) k/uL RBC 3.41 L (3.80-5.40) m/uL Hgb 9.4 L (11.4-16.0) gm/dL Hct 30.2 L (34.0-46.0) % MCHC (31.0-37.0) g/dL Neutrophils # (1.3-7.7) k/uL Chloride (98-107) mmol/L BUN (7-17) mg/dL Glucose (74-99) mg/dL POC Glucose (mg/dL) 154 H 135 H (75-99) mg/dL Urine Appearance (Clear) Urine Protein (Negative) Urine Nitrite (Negative) Ur Leukocyte Esterase (Negative) Urine RBC (0-5) /hpf Urine WBC (0-5) /hpf Urine WBC Clumps (None) /hpf Urine Bacteria (None) /hpf 04/28/17 04/28/17 Range/Units 13:52 15:10 WBC 13.9 H (3.8-10.6) k/uL RBC 3.53 L (3.80-5.40) m/uL Hgb 9.8 L (11.4-16.0) gm/dL Hct 31.4 L (34.0-46.0) % MCHC (31.0-37.0) g/dL Neutrophils # 9.4 H (1.3-7.7) k/uL Chloride (98-107) mmol/L BUN (7-17) mg/dL Glucose (74-99) mg/dL POC Glucose (mg/dL) (75-99) mg/dL Urine Appearance Cloudy H (Clear) Urine Protein Trace H (Negative) Urine Nitrite Positive H (Negative) Ur Leukocyte Esterase Large H (Negative) Urine RBC 6 H (0-5) /hpf Urine WBC 45 H (0-5) /hpf Urine WBC Clumps Occasional H (None) /hpf Urine Bacteria Many H (None) /hpf Assessment and Plan Assessment: Assessment GI bleed, likely lower in nature Anemia, secondary to GI bleed, status post 2 units PRBCs with anticipated colonoscopy on April 26 History of hypertension Hyperlipidemia Diabetes Diabetic neuropathy History of rheumatoid arthritis Previous history of MRSA infection Status post appendectomy, cholecystectomy, and hernia repair Plan: Plan dated 04/25/2017 The patient was admitted to the ICU as a 6 selective overflow. The patient seemed to be relatively stable. We'll continue to follow the patient closely. We'll monitor vital signs blood test, and other testing. Patient seemed relatively stable. Not having any difficulty breathing coughing wheezing chest pain chest discomfort palpitations nausea vomiting or diarrhea. No episodes of GI bleed so far this morning. Hemodynamics and respiratory status are stable. Plan dated 04/26/2017 The patient did receive 2 units of packed red blood cells. The patient is scheduled for colonoscopy today with the GI services. The patient otherwise is doing real well. No additional bleeding this morning. The patient may be able to be discharged to the general medical floor post colonoscopy if the findings are benign. The patient clinically looks well. The patient is not complaining of any additional bleeding abdominal pain abdominal discomfort or cramping. Plan dated 04/28/2017 The patient's doing well. The patient did receive 2 units of blood. The patient stable. I the patient was discharged to the general medical floor on April 26. She still on the hospital. No additional bleeding. From the critical care standpoint, no active issues. We'll see the patient when necessary. Time with Patient: Less than 30
[2017-04-28 16:59] LABS: Glucose,Whole Blood 148 mg/dL (75-99)
[2017-04-28] MEDS: ATENOLOL 25 MG TAB PO SCH (20:08)
[2017-04-28] MEDS: Acetaminophen-Codeine 300-30mg TAB PO PRN (20:08)
[2017-04-28 20:10] LABS: Basophils % (A) 0 %; Eosinophils # (A) 0.1 k/uL (0-0.7); Eosinophils % (A) 1 %; HCT 27.3 % (34.0-46.0); HGB 8.6 gm/dL (11.4-16.0); Hypochromasia Slight; Lymphocytes # (A) 3.7 k/uL (1.0-4.8); Lymphocytes % (A) 32 %; MCH 27.4 pg (25.0-35.0); MCHC 31.5 g/dL (31.0-37.0); MCV 87.2 fL (80.0-100.0); Mean Platelet Volume 7.6; Monocytes # (A) 0.7 k/uL (0-1.0); Monocytes % (A) 6 %; Neutrophils % (A) 60 %; Platelet Count 227 k/uL (150-450); RBC 3.13 m/uL (3.80-5.40); RDW 14.8 % (11.5-15.5); WBC 11.8 k/uL (3.8-10.6)
[2017-04-28 20:10] LABS: Glucose,Whole Blood 149 mg/dL (75-99)
[2017-04-28] MEDS: cefTRIAXone IN SWFI 1,000 MG/10 ML SYRINGE IVP SCH (21:39)
--- NOTE | 2017-04-28 22:24 | PN ---
PROGRESS NOTE DATE OF SERVICE: 04/28/2017 I am covering for Dr. Caleb Schafer. This 86-year-old woman was admitted with lower bleed had a previous recent colonoscopy and polypectomy. No active bleeding is noted but however the hemoglobin is currently 8.6. UA shows UTI. No chest pain. No palpitations. No fever. PHYSICAL EXAM: Alert and oriented x3. The pulse is 68, blood pressure 126/64, respiration 16, temperature 97.1, pulse ox 94% on room air. HEENT: Conjunctivae normal. Oral mucosa moist. Neck is no jugular venous distention. No carotid bruit. No lymph node enlargement. Cardiovascular S1, S2 muffled. No S3. No S4. Respiratory: Breath sounds diminished in the bases. No rhonchi, no crackles. ABDOMEN: Soft, nontender. No mass palpable. Legs no edema and no swelling. Central nervous system: No focal deficits. LABS: WBC 11.8, hemoglobin is 8.7, glucose 149. ASSESSMENT: 1. Lower gastrointestinal bleeding with status post colonoscopy and polypectomy. 2. History of possible post polypectomy bleeding. 3. Urinary tract infection. 4. Acute blood loss anemia, symptomatic, status post transfusions. 5. Dementia. 6. Diabetes type 2. 7. Hypertension. 8. History of pneumonia. 9. History of rheumatoid arthritis. 10.History of Methicillin-resistant Staphylococcus aureus. 11.History of SLE. 12.History of degenerative joint disease. 13.History of cholecystectomy. RECOMMENDATIONS AND DISCUSSION: Recommend to continue current medications, management, symptomatic treatment. This 86- year-old woman with a past history of multiple complex medical issues received transfusion because of symptomatic anemia. The patient appears to be slightly better, but however, we will monitor hemoglobin closely. Add antibiotics for UTI. See orders for further details. Further recommendations to follow. MMODL / IJN: [id number] /
[2017-04-29 01:38] LABS: Basophils % (A) 0 %; Eosinophils # (A) 0.2 k/uL (0-0.7); Eosinophils % (A) 2 %; HCT 27.8 % (34.0-46.0); HGB 8.5 gm/dL (11.4-16.0); Hypochromasia Slight; Lymphocytes # (A) 3.8 k/uL (1.0-4.8); Lymphocytes % (A) 36 %; MCH 27.1 pg (25.0-35.0); MCHC 30.6 g/dL (31.0-37.0); MCV 88.6 fL (80.0-100.0); Mean Platelet Volume 7.9; Monocytes # (A) 0.7 k/uL (0-1.0); Monocytes % (A) 7 %; Neutrophils # (A) 5.7 k/uL (1.3-7.7); Neutrophils % (A) 54 %; Platelet Count 224 k/uL (150-450); RBC 3.14 m/uL (3.80-5.40); RDW 14.8 % (11.5-15.5); WBC 10.5 k/uL (3.8-10.6)
[2017-04-29 06:04] LABS: Glucose,Whole Blood 175 mg/dL (75-99)
[2017-04-29] MEDS: ALPRAZolam 0.5 MG TAB PO SCH ×2 (07:59→20:37)
[2017-04-29] MEDS: FLUTICASONE 50MCG/SPRAY NASAL 16GM EA NOSTRIL SCH (07:59)
[2017-04-29] MEDS: ATORVASTATIN 20 MG TAB PO SCH (07:59)
[2017-04-29] MEDS: Acetaminophen-Codeine 300-30mg TAB PO PRN ×3 (07:59→20:36)
[2017-04-29] MEDS: metFORMIN 500 MG TAB PO SCH ×2 (08:00→20:37)
[2017-04-29] MEDS: GABAPENTIN 100 MG CAP PO SCH ×3 (08:00→20:37)
[2017-04-29] MEDS: LOSARTAN 50 MG TAB PO SCH (08:00)
[2017-04-29] MEDS: FAMOTIDINE 20 MG TAB PO SCH ×2 (08:00→20:37)
[2017-04-29] MEDS: MAGNESIUM OXIDE 400 MG TAB PO SCH (08:00)
[2017-04-29 08:09] LABS: Basophils % (A) 0 %; Eosinophils # (A) 0.2 k/uL (0-0.7); Eosinophils % (A) 2 %; HCT 29.5 % (34.0-46.0); HGB 9.1 gm/dL (11.4-16.0); Hypochromasia Slight; Lymphocytes # (A) 3.1 k/uL (1.0-4.8); Lymphocytes % (A) 32 %; MCH 27.8 pg (25.0-35.0); MCV 89.8 fL (80.0-100.0); Mean Platelet Volume 7.3; Monocytes # (A) 0.6 k/uL (0-1.0); Monocytes % (A) 6 %; Neutrophils # (A) 5.5 k/uL (1.3-7.7); Neutrophils % (A) 58 %; Platelet Count 246 k/uL (150-450); RBC 3.29 m/uL (3.80-5.40); RDW 14.8 % (11.5-15.5); WBC 9.6 k/uL (3.8-10.6)
[2017-04-29 08:21] LABS: Anion Gap 11 mmol/L; Blood Urea Nitrogen 16 mg/dL (7-17); Calcium 9.2 mg/dL (8.4-10.2); Carbon Dioxide 24 mmol/L (22-30); Chloride 107 mmol/L (98-107); Glucose 151 mg/dL (74-99); Potassium 4.3 mmol/L (3.5-5.1); Sodium 142 mmol/L (137-145)
--- NOTE | 2017-04-29 11:32 | P.PN ---
Subjective Patient is an 86-year-old white female with a history of utilizing Plavix for cardiac disease. She last took Plavix on Sunday morning. She presented to the hospital with a complaint of bright red blood per rectum. She recently had a colonoscopy which revealed pandiverticulosis and 2 polyps which were removed. The patient at this time is not having any further bloody bowel movements. Her hemoglobin today is noted to be 9.1 . The patient is feeling well, with no complaints. Objective - Vital Signs Vital signs: Vital Signs Temp 97.4 F L 04/29/17 07:50 Pulse 62 04/29/17 11:26 Resp 16 04/29/17 11:26 BP 123/69 04/29/17 11:26 Pulse Ox 97 04/29/17 11:26 Intake & Output 04/28/17 04/29/17 04/29/17 18:59 06:59 18:59 Intake Total 240 350 500 Output Total 100 0 0 Balance 140 350 500 Weight 85 kg Intake: Oral 240 350 500 Output: Urine 100 0 Stool 0 0 0 Other: Voiding Method Incontinent Incontinent Incontinent # Voids 3 1 1 # Bowel Movements 3 - Constitutional General appearance: Present: obese - Respiratory Respiratory: bilateral: CTA - Cardiovascular Rhythm: regular Heart sounds: normal: S1, S2 - Gastrointestinal General gastrointestinal: Present: decreased bowel sounds, soft - Psychiatric Psychiatric: Present: A&O x's 3, appropriate affect, intact judgment & insight - Labs CBC & Chem 7: 04/29/17 07:23 04/29/17 07:23 Labs: Abnormal Lab Results - Last 24 Hours (Table) 04/28/17 04/28/17 04/28/17 Range/Units 11:56 13:52 15:10 WBC 13.9 H (3.8-10.6) k/uL RBC 3.53 L (3.80-5.40) m/uL Hgb 9.8 L (11.4-16.0) gm/dL Hct 31.4 L (34.0-46.0) % MCHC (31.0-37.0) g/dL Neutrophils # 9.4 H (1.3-7.7) k/uL Glucose (74-99) mg/dL POC Glucose (mg/dL) 135 H (75-99) mg/dL Urine Appearance Cloudy H (Clear) Urine Protein Trace H (Negative) Urine Nitrite Positive H (Negative) Ur Leukocyte Esterase Large H (Negative) Urine RBC 6 H (0-5) /hpf Urine WBC 45 H (0-5) /hpf Urine WBC Clumps Occasional H (None) /hpf Urine Bacteria Many H (None) /hpf 04/28/17 04/28/17 04/28/17 Range/Units 16:40 19:55 20:08 WBC 11.8 H (3.8-10.6) k/uL RBC 3.13 L (3.80-5.40) m/uL Hgb 8.6 L (11.4-16.0) gm/dL Hct 27.3 L (34.0-46.0) % MCHC (31.0-37.0) g/dL Neutrophils # (1.3-7.7) k/uL Glucose (74-99) mg/dL POC Glucose (mg/dL) 148 H 149 H (75-99) mg/dL Urine Appearance (Clear) Urine Protein (Negative) Urine Nitrite (Negative) Ur Leukocyte Esterase (Negative) Urine RBC (0-5) /hpf Urine WBC (0-5) /hpf Urine WBC Clumps (None) /hpf Urine Bacteria (None) /hpf 04/29/17 04/29/17 04/29/17 Range/Units 01:19 06:02 07:23 WBC (3.8-10.6) k/uL RBC 3.14 L (3.80-5.40) m/uL Hgb 8.5 L (11.4-16.0) gm/dL Hct 27.8 L (34.0-46.0) % MCHC 30.6 L (31.0-37.0) g/dL Neutrophils # (1.3-7.7) k/uL Glucose 151 H (74-99) mg/dL POC Glucose (mg/dL) 175 H (75-99) mg/dL Urine Appearance (Clear) Urine Protein (Negative) Urine Nitrite (Negative) Ur Leukocyte Esterase (Negative) Urine RBC (0-5) /hpf Urine WBC (0-5) /hpf Urine WBC Clumps (None) /hpf Urine Bacteria (None) /hpf 04/29/17 Range/Units 07:23 WBC (3.8-10.6) k/uL RBC 3.29 L (3.80-5.40) m/uL Hgb 9.1 L (11.4-16.0) gm/dL Hct 29.5 L (34.0-46.0) % MCHC (31.0-37.0) g/dL Neutrophils # (1.3-7.7) k/uL Glucose (74-99) mg/dL POC Glucose (mg/dL) (75-99) mg/dL Urine Appearance (Clear) Urine Protein (Negative) Urine Nitrite (Negative) Ur Leukocyte Esterase (Negative) Urine RBC (0-5) /hpf Urine WBC (0-5) /hpf Urine WBC Clumps (None) /hpf Urine Bacteria (None) /hpf Microbiology - Last 24 Hours (Table) 04/28/17 15:10 Urine Culture - Preliminary Urine,Catheterized Assessment and Plan Plan: Impression/plan: 1. 86 year-old white female status post colonoscopy with 2 polyps removed on Plavix who subsequently developed a lower GI bleed 2. No further evidence of bleeding, hemoglobin 9.1 Plan: 1. Advance diet 2. Will follow as needed, no need for acute surgical intervention at this time
[2017-04-29 11:55] LABS: Glucose,Whole Blood 136 mg/dL (75-99)
[2017-04-29 12:53] LABS: Basophils % (A) 0 %; Eosinophils # (A) 0.3 k/uL (0-0.7); Eosinophils % (A) 2 %; HCT 30.6 % (34.0-46.0); HGB 9.4 gm/dL (11.4-16.0); Hypochromasia Slight; Lymphocytes # (A) 3.3 k/uL (1.0-4.8); Lymphocytes % (A) 31 %; MCH 27.9 pg (25.0-35.0); MCHC 30.8 g/dL (31.0-37.0); MCV 90.5 fL (80.0-100.0); Mean Platelet Volume 7.3; Monocytes # (A) 0.6 k/uL (0-1.0); Monocytes % (A) 6 %; Neutrophils # (A) 6.3 k/uL (1.3-7.7); Neutrophils % (A) 60 %; Platelet Count 263 k/uL (150-450); RBC 3.38 m/uL (3.80-5.40); RDW 14.8 % (11.5-15.5); WBC 10.6 k/uL (3.8-10.6)
[2017-04-29 16:31] LABS: Glucose,Whole Blood 125 mg/dL (75-99)
--- NOTE | 2017-04-29 19:46 | PN ---
PROGRESS NOTE DATE OF SERVICE: 04/29/2017 I am covering for Dr. Caleb Schafer. This 86-year-old woman was admitted with lower GI bleeding is being closely monitored at this time. The patient polypectomy bleeding. Bleeding seems to be into a stop at this time. Hemoglobin is stable at 9.4 today. No chest pain. No palpitations. No fever. No abdominal distention. EXAM: Alert and oriented x3. Pulse is 60, blood pressure 170/60, respirations 16, temperature 98 degrees, pulse ox 94% on room air. HEENT: Conjunctivae normal. NECK: ntd CARDIOVASCULAR: S1, S2. Breath sounds diminished at the bases. No rhonchi, no crackles. Abdomen is soft, nontender. No mass palpable. LEGS: No edema, no swelling. LABS: Hemoglobin 9.6. ASSESSMENT: 1. Lower gastrointestinal bleeding with possibly post polypectomy bleeding. 2. Acute blood loss anemia. 3. Status post colonoscopy and polypectomy recently. 4. Urinary tract infection. 5. Dementia. 6. Diabetes type 2. 7. Hypertension. 8. Symptomatic anemia. 9. History of pneumonia. 10.History of rheumatoid arthritis. 11.History of Methicillin-resistant Staphylococcus aureus. 12.History of systemic lupus erythematosus. 13.History of degenerative joint disease. 14.History of cholecystectomy. RECOMMENDATIONS: Recommend to continue current management and symptomatic treatment. Recommend in this elderly individual 86-year-old woman with a past medical history of multiple medical problems including symptomatic anemia, the patient was transfused and appears to be stable at this time. However, I would recommend to continue hemoglobin and if further bleeding or drop in hemoglobin, further evaluation including colonoscopy is warranted. Prognosis guarded. Further recommendations to follow. MMODL / IJN: [id number] / MTDD
[2017-04-29] MEDS: ATENOLOL 25 MG TAB PO SCH (20:36)
[2017-04-29] MEDS: cefTRIAXone IN SWFI 1,000 MG/10 ML SYRINGE IVP SCH (20:37)
[2017-04-29 20:43] LABS: Glucose,Whole Blood 207 mg/dL (75-99)
[2017-04-30 06:22] LABS: Glucose,Whole Blood 156 mg/dL (75-99)
[2017-04-30 06:35] LABS: Basophils % (A) 0 %; Eosinophils # (A) 0.2 k/uL (0-0.7); Eosinophils % (A) 3 %; HCT 28.3 % (34.0-46.0); HGB 8.5 gm/dL (11.4-16.0); Hypochromasia Marked; Lymphocytes # (A) 3.2 k/uL (1.0-4.8); Lymphocytes % (A) 40 %; MCH 27.9 pg (25.0-35.0); MCHC 29.9 g/dL (31.0-37.0); MCV 93.4 fL (80.0-100.0); Mean Platelet Volume 7.2; Monocytes # (A) 0.5 k/uL (0-1.0); Monocytes % (A) 6 %; Neutrophils # (A) 3.8 k/uL (1.3-7.7); Neutrophils % (A) 48 %; Platelet Count 234 k/uL (150-450); RBC 3.03 m/uL (3.80-5.40); RDW 14.6 % (11.5-15.5); WBC 7.9 k/uL (3.8-10.6)
--- NOTE | 2017-04-30 06:48 | P.PN ---
Subjective Progress Note Date: 04/29/17 Patient is an 86-year-old white female with a history of utilizing Plavix for cardiac disease. She last took Plavix on Sunday morning. She presented to the hospital with a complaint of bright red blood per rectum. She recently had a colonoscopy which revealed pandiverticulosis and 2 polyps which were removed. The patient at this time is not having any further bloody bowel movements. Her hemoglobin today is noted to be 9.1 . The patient is feeling well, with no complaints. Objective - Vital Signs Vital signs: Vital Signs Temp 98 F 04/29/17 16:07 Pulse 60 04/29/17 16:07 Resp 16 04/29/17 16:07 BP 117/65 04/29/17 16:07 Pulse Ox 95 04/29/17 16:07 Intake & Output 04/28/17 04/29/17 04/29/17 18:59 06:59 18:59 Intake Total 240 350 500 Output Total 100 0 0 Balance 140 350 500 Weight 85 kg Intake: Oral 240 350 500 Output: Urine 100 0 Stool 0 0 0 Other: Voiding Method Incontinent Incontinent Incontinent # Voids 3 1 1 # Bowel Movements 3 - Exam General appearance: The patient is alert, oriented, in no acute distress. HET: Head is normocephalic and atraumatic. Pupils are equal and reactive. Oropharynx is clear without lesions. Neck: Supple without lymphadenopathy. Trachea midline. Heart: S1 S2. Regular rate and rhythm. Lungs: No crackles or wheezes are heard. Abdomen: Soft, nondistended with bowel sounds. No peritoneal signs. No palpable organomegaly or masses. Extremities: Normal skin color and turgor. No cyanosis, rash, ulceration, clubbing, or edema. Radial and pedal pulses are 2/4 bilaterally. Neurological: No focal deficits. Strength and sensation are grossly intact. - Labs CBC & Chem 7: 04/29/17 12:29 04/29/17 07:23 Labs: Abnormal Lab Results - Last 24 Hours (Table) 04/28/17 04/28/17 04/28/17 Range/Units 16:40 19:55 20:08 WBC 11.8 H (3.8-10.6) k/uL RBC 3.13 L (3.80-5.40) m/uL Hgb 8.6 L (11.4-16.0) gm/dL Hct 27.3 L (34.0-46.0) % MCHC (31.0-37.0) g/dL Glucose (74-99) mg/dL POC Glucose (mg/dL) 148 H 149 H (75-99) mg/dL 04/29/17 04/29/17 04/29/17 Range/Units 01:19 06:02 07:23 WBC (3.8-10.6) k/uL RBC 3.14 L (3.80-5.40) m/uL Hgb 8.5 L (11.4-16.0) gm/dL Hct 27.8 L (34.0-46.0) % MCHC 30.6 L (31.0-37.0) g/dL Glucose 151 H (74-99) mg/dL POC Glucose (mg/dL) 175 H (75-99) mg/dL 04/29/17 04/29/17 04/29/17 Range/Units 07:23 11:50 12:29 WBC (3.8-10.6) k/uL RBC 3.29 L 3.38 L (3.80-5.40) m/uL Hgb 9.1 L 9.4 L (11.4-16.0) gm/dL Hct 29.5 L 30.6 L (34.0-46.0) % MCHC 30.8 L (31.0-37.0) g/dL Glucose (74-99) mg/dL POC Glucose (mg/dL) 136 H (75-99) mg/dL 04/29/17 Range/Units 16:28 WBC (3.8-10.6) k/uL RBC (3.80-5.40) m/uL Hgb (11.4-16.0) gm/dL Hct (34.0-46.0) % MCHC (31.0-37.0) g/dL Glucose (74-99) mg/dL POC Glucose (mg/dL) 125 H (75-99) mg/dL Microbiology - Last 24 Hours (Table) 04/28/17 15:10 Urine Culture - Preliminary Urine,Catheterized Assessment and Plan Assessment: Lower GI bleeding secondary to diverticulosis, subsided with stable Hb. Plan: Advance diet. Follow Hb and clinical course.
[2017-04-30 07:01] LABS: Anion Gap 12 mmol/L; Blood Urea Nitrogen 16 mg/dL (7-17); Calcium 8.9 mg/dL (8.4-10.2); Carbon Dioxide 21 mmol/L (22-30); Chloride 111 mmol/L (98-107); Glucose 139 mg/dL (74-99); Potassium 4.9 mmol/L (3.5-5.1); Sodium 144 mmol/L (137-145)
[2017-04-30] MEDS: FLUTICASONE 50MCG/SPRAY NASAL 16GM EA NOSTRIL SCH (08:14)
[2017-04-30] MEDS: ATORVASTATIN 20 MG TAB PO SCH (08:14)
[2017-04-30] MEDS: ALPRAZolam 0.5 MG TAB PO SCH ×2 (08:14→21:00)
[2017-04-30] MEDS: FAMOTIDINE 20 MG TAB PO SCH (08:14)
[2017-04-30] MEDS: GABAPENTIN 100 MG CAP PO SCH ×3 (08:14→21:01)
[2017-04-30] MEDS: LOSARTAN 50 MG TAB PO SCH (08:15)
[2017-04-30] MEDS: metFORMIN 500 MG TAB PO SCH ×2 (08:15→21:00)
[2017-04-30] MEDS: MAGNESIUM OXIDE 400 MG TAB PO SCH (08:15)
--- NOTE | 2017-04-30 11:00 | P.PN ---
Subjective Patient resting in bed with complaints of occasional chills. Hemoglobin dropped from 9.4-8.5 patient continues on Rocephin for urinary tract infection. Objective - Vital Signs Vital signs: Vital Signs Temp 98.1 F 04/30/17 08:00 Pulse 60 04/30/17 08:00 Resp 16 04/30/17 08:00 BP 132/66 04/30/17 08:00 Pulse Ox 90 L 04/30/17 08:00 Intake & Output 04/29/17 04/30/17 04/30/17 18:59 06:59 18:59 Intake Total 500 350 100 Output Total 0 0 Balance 500 350 100 Weight 82.5 kg Intake: Oral 500 350 100 Output: Urine 0 Stool 0 0 Other: Voiding Method Incontinent Incontinent # Voids 3 0 1 - Constitutional General appearance: Present: obese - EENT Eyes: Present: PERRLA Ears: bilateral: normal - Neck Neck: Present: normal ROM - Respiratory Respiratory: bilateral: CTA - Cardiovascular Rhythm: regular - Gastrointestinal General gastrointestinal: Present: soft - Integumentary Integumentary: Present: normal - Neurologic Neurologic: Present: CNII-XII intact - Musculoskeletal Musculoskeletal: Present: generalized weakness - Psychiatric Psychiatric: Present: A&O x's 3, appropriate affect, intact judgment & insight - Labs CBC & Chem 7: 04/30/17 06:06 04/30/17 06:06 Labs: Abnormal Lab Results - Last 24 Hours (Table) 04/29/17 04/29/17 04/29/17 Range/Units 11:50 12:29 16:28 RBC 3.38 L (3.80-5.40) m/uL Hgb 9.4 L (11.4-16.0) gm/dL Hct 30.6 L (34.0-46.0) % MCHC 30.8 L (31.0-37.0) g/dL Chloride (98-107) mmol/L Carbon Dioxide (22-30) mmol/L Glucose (74-99) mg/dL POC Glucose (mg/dL) 136 H 125 H (75-99) mg/dL 04/29/17 04/30/17 04/30/17 Range/Units 20:35 06:06 06:06 RBC 3.03 L (3.80-5.40) m/uL Hgb 8.5 L (11.4-16.0) gm/dL Hct 28.3 L (34.0-46.0) % MCHC 29.9 L (31.0-37.0) g/dL Chloride 111 H (98-107) mmol/L Carbon Dioxide 21 L (22-30) mmol/L Glucose 139 H (74-99) mg/dL POC Glucose (mg/dL) 207 H (75-99) mg/dL 04/30/17 Range/Units 06:19 RBC (3.80-5.40) m/uL Hgb (11.4-16.0) gm/dL Hct (34.0-46.0) % MCHC (31.0-37.0) g/dL Chloride (98-107) mmol/L Carbon Dioxide (22-30) mmol/L Glucose (74-99) mg/dL POC Glucose (mg/dL) 156 H (75-99) mg/dL Microbiology - Last 24 Hours (Table) 04/28/17 15:10 Urine Culture - Preliminary Urine,Catheterized Gram Neg Bacilli Assessment and Plan Plan: Assessment Lower gastrointestinal bleeding with post polypectomy bleeding Acute blood loss anemia Post colonoscopy and polypectomy Urinary tract infection Dementia Diabetes type 2 hypertension Pneumonia History of rheumatoid arthritis Degenerative joint disease History of cholecystectomy appendectomy hernia repair Plan I continue to monitor patient's hemoglobin Continue with consultation with GI and surgery Continues on Rocephin for UTI
[2017-04-30 11:35] LABS: Glucose,Whole Blood 112 mg/dL (75-99)
--- NOTE | 2017-04-30 16:05 | P.PN ---
Subjective Progress Note Date: 04/30/17 Principal diagnosis: GI bleeding Patient doing well today. No bleeding over the weekend. Brown colored stools today. Awaiting discharge. Objective - Vital Signs Vital signs: Vital Signs Temp 97.2 F L 04/30/17 12:00 Pulse 62 04/30/17 12:00 Resp 18 04/30/17 12:00 BP 130/72 04/30/17 12:00 Pulse Ox 92 L 04/30/17 12:00 Intake & Output 04/29/17 04/30/17 04/30/17 18:59 06:59 18:59 Intake Total 500 350 100 Output Total 0 0 Balance 500 350 100 Weight 82.5 kg Intake: Oral 500 350 100 Output: Urine 0 Stool 0 0 Other: Voiding Method Incontinent Incontinent # Voids 3 0 1 - Exam Abdomen: Soft, nondistended, nontender - Labs CBC & Chem 7: 04/30/17 06:06 04/30/17 06:06 Labs: Abnormal Lab Results - Last 24 Hours (Table) 04/29/17 04/29/17 04/30/17 Range/Units 16:28 20:35 06:06 RBC 3.03 L (3.80-5.40) m/uL Hgb 8.5 L (11.4-16.0) gm/dL Hct 28.3 L (34.0-46.0) % MCHC 29.9 L (31.0-37.0) g/dL Chloride (98-107) mmol/L Carbon Dioxide (22-30) mmol/L Glucose (74-99) mg/dL POC Glucose (mg/dL) 125 H 207 H (75-99) mg/dL 04/30/17 04/30/17 04/30/17 Range/Units 06:06 06:19 11:26 RBC (3.80-5.40) m/uL Hgb (11.4-16.0) gm/dL Hct (34.0-46.0) % MCHC (31.0-37.0) g/dL Chloride 111 H (98-107) mmol/L Carbon Dioxide 21 L (22-30) mmol/L Glucose 139 H (74-99) mg/dL POC Glucose (mg/dL) 156 H 112 H (75-99) mg/dL Microbiology - Last 24 Hours (Table) 04/28/17 15:10 Urine Culture - Preliminary Urine,Catheterized Gram Neg Bacilli Assessment and Plan (1) Gastrointestinal hemorrhage Narrative/Plan: Patient clinically doing well. Still suspect post polypectomy bleed etiology for Fridays bloody stool. No surgical intervention planned. We'll sign off. Current Visit: Yes Status: Acute Code(s): K92.2 - GASTROINTESTINAL HEMORRHAGE, UNSPECIFIED SNOMED Code(s): 06267619
[2017-04-30] MEDS: Acetaminophen-Codeine 300-30mg TAB PO PRN ×2 (16:36→21:06)
[2017-04-30 17:09] LABS: Glucose,Whole Blood 120 mg/dL (75-99)
[2017-04-30 20:59] LABS: Glucose,Whole Blood 184 mg/dL (75-99)
[2017-04-30] MEDS: cefTRIAXone IN SWFI 1,000 MG/10 ML SYRINGE IVP SCH (21:00)
[2017-04-30] MEDS: ATENOLOL 25 MG TAB PO SCH (21:01)
[2017-05-01 05:14] VITALS: RESP 18
[2017-05-01 05:50] LABS: Basophils % (A) 0 %; Eosinophils # (A) 0.2 k/uL (0-0.7); Eosinophils % (A) 3 %; HCT 25.4 % (34.0-46.0); HGB 8.1 gm/dL (11.4-16.0); Lymphocytes # (A) 3.6 k/uL (1.0-4.8); Lymphocytes % (A) 44 %; MCH 27.9 pg (25.0-35.0); Mean Platelet Volume 7.3; Monocytes # (A) 0.4 k/uL (0-1.0); Monocytes % (A) 5 %; Neutrophils # (A) 3.7 k/uL (1.3-7.7); Neutrophils % (A) 45 %; Platelet Count 242 k/uL (150-450); RBC 2.92 m/uL (3.80-5.40); RDW 14.8 % (11.5-15.5); WBC 8.1 k/uL (3.8-10.6)
[2017-05-01 05:56] LABS: MCV 87.2 fL (80.0-100.0)
[2017-05-01 06:03] LABS: Anion Gap 11 mmol/L; Blood Urea Nitrogen 17 mg/dL (7-17); Carbon Dioxide 25 mmol/L (22-30); Chloride 108 mmol/L (98-107); Glucose 132 mg/dL (74-99); Potassium 4.9 mmol/L (3.5-5.1); Sodium 144 mmol/L (137-145)
[2017-05-01 06:20] LABS: Glucose,Whole Blood 138 mg/dL (75-99)
[2017-05-01] MEDS: FAMOTIDINE 20 MG TAB PO SCH (08:22)
[2017-05-01] MEDS: LOSARTAN 50 MG TAB PO SCH (08:22)
[2017-05-01] MEDS: metFORMIN 500 MG TAB PO SCH ×2 (08:22→20:32)
[2017-05-01] MEDS: MAGNESIUM OXIDE 400 MG TAB PO SCH (08:22)
[2017-05-01] MEDS: ALPRAZolam 0.5 MG TAB PO SCH ×2 (08:22→20:32)
[2017-05-01] MEDS: ATORVASTATIN 20 MG TAB PO SCH (08:22)
[2017-05-01] MEDS: GABAPENTIN 100 MG CAP PO SCH ×3 (08:22→20:32)
[2017-05-01] MEDS: FLUTICASONE 50MCG/SPRAY NASAL 16GM EA NOSTRIL SCH (08:24)
[2017-05-01] MEDS: Acetaminophen-Codeine 300-30mg TAB PO PRN (09:12)
--- NOTE | 2017-05-01 10:39 | P.PN ---
Subjective Patient resting in bed without complaint denies any further bloody stools. Noted hemoglobin 8.1 down from 9.42 days ago Objective - Vital Signs Vital signs: Vital Signs Temp 99 F 05/01/17 08:22 Pulse 62 05/01/17 08:22 Resp 18 05/01/17 08:22 BP 141/90 05/01/17 08:22 Pulse Ox 98 05/01/17 08:22 Intake & Output 04/30/17 05/01/17 05/01/17 18:59 06:59 18:59 Intake Total 100 120 Output Total 500 0 Balance -400 0 120 Weight 82.5 kg Intake: Oral 100 120 Output: Urine 500 Stool 0 Other: Voiding Method Incontinent Incontinent # Voids 2 2 - Constitutional General appearance: Present: obese - EENT Eyes: Present: PERRLA Ears: bilateral: normal - Neck Neck: Present: normal ROM - Respiratory Respiratory: bilateral: CTA - Cardiovascular Rhythm: regular - Gastrointestinal General gastrointestinal: Present: soft - Integumentary Integumentary: Present: normal - Neurologic Neurologic: Present: CNII-XII intact - Musculoskeletal Musculoskeletal: Present: generalized weakness - Psychiatric Psychiatric: Present: A&O x's 3, intact judgment & insight - Labs CBC & Chem 7: 05/01/17 05:30 05/01/17 05:30 Labs: Abnormal Lab Results - Last 24 Hours (Table) 04/30/17 04/30/17 04/30/17 Range/Units 11:26 16:44 20:56 RBC (3.80-5.40) m/uL Hgb (11.4-16.0) gm/dL Hct (34.0-46.0) % Chloride (98-107) mmol/L Glucose (74-99) mg/dL POC Glucose (mg/dL) 112 H 120 H 184 H (75-99) mg/dL 05/01/17 05/01/17 05/01/17 Range/Units 05:30 05:30 06:03 RBC 2.92 L (3.80-5.40) m/uL Hgb 8.1 L (11.4-16.0) gm/dL Hct 25.4 L (34.0-46.0) % Chloride 108 H (98-107) mmol/L Glucose 132 H (74-99) mg/dL POC Glucose (mg/dL) 138 H (75-99) mg/dL Microbiology - Last 24 Hours (Table) 04/28/17 15:10 Urine Culture - Final Urine,Catheterized Klebsiella pneumoniae Assessment and Plan Plan: Assessment Rectal bleeding post polypectomy Acute blood loss anemia Post colonoscopy and polypectomy Urinary tract infection Dementia Diabetes type 2 Hypertension History of rheumatoid arthritis and lupus degenerative joint disease History of cholecystectomy appendectomy and hernia repair Plan We'll continue with Rocephin will cover his urinary tract infection Surgery is signed off the case We'll be contacting gastroenterology regarding further treatment
[2017-05-01 11:56] LABS: Basophils % (A) 0 %; Eosinophils # (A) 0.2 k/uL (0-0.7); Eosinophils % (A) 2 %; HCT 24.4 % (34.0-46.0); HGB 7.8 gm/dL (11.4-16.0); Hypochromasia Slight; Lymphocytes # (A) 2.7 k/uL (1.0-4.8); Lymphocytes % (A) 37 %; MCH 28.2 pg (25.0-35.0); MCV 87.9 fL (80.0-100.0); Mean Platelet Volume 7.8; Monocytes # (A) 0.4 k/uL (0-1.0); Monocytes % (A) 6 %; Neutrophils # (A) 3.8 k/uL (1.3-7.7); Neutrophils % (A) 53 %; Platelet Count 220 k/uL (150-450); RBC 2.78 m/uL (3.80-5.40); RDW 14.9 % (11.5-15.5); WBC 7.2 k/uL (3.8-10.6)
[2017-05-01 12:14] LABS: Glucose,Whole Blood 174 mg/dL (75-99)
[2017-05-01 17:17] LABS: Glucose,Whole Blood 158 mg/dL (75-99)
[2017-05-01] MEDS: ATENOLOL 25 MG TAB PO SCH (20:32)
[2017-05-01] MEDS: cefTRIAXone IN SWFI 1,000 MG/10 ML SYRINGE IVP SCH (20:34)
[2017-05-01 21:11] LABS: Glucose,Whole Blood 167 mg/dL (75-99)
[2017-05-02 06:06] LABS: Glucose,Whole Blood 141 mg/dL (75-99)
[2017-05-02 06:27] LABS: Basophils % (A) 0 %; Eosinophils # (A) 0.2 k/uL (0-0.7); Eosinophils % (A) 3 %; HCT 24.4 % (34.0-46.0); HGB 7.9 gm/dL (11.4-16.0); Lymphocytes # (A) 3.3 k/uL (1.0-4.8); Lymphocytes % (A) 42 %; MCH 28.1 pg (25.0-35.0); MCHC 32.4 g/dL (31.0-37.0); MCV 86.5 fL (80.0-100.0); Mean Platelet Volume 7.6; Monocytes # (A) 0.4 k/uL (0-1.0); Monocytes % (A) 5 %; Neutrophils # (A) 3.8 k/uL (1.3-7.7); Neutrophils % (A) 48 %; Platelet Count 248 k/uL (150-450); RBC 2.82 m/uL (3.80-5.40); RDW 14.7 % (11.5-15.5); WBC 7.8 k/uL (3.8-10.6)
[2017-05-02 06:55] LABS: Calcium 9.4 mg/dL (8.4-10.2); Potassium 4.5 mmol/L (3.5-5.1)
[2017-05-02] MEDS: MAGNESIUM OXIDE 400 MG TAB PO SCH (08:26)
[2017-05-02] MEDS: ALPRAZolam 0.5 MG TAB PO SCH (08:26)
[2017-05-02] MEDS: ATORVASTATIN 20 MG TAB PO SCH (08:26)
[2017-05-02] MEDS: FAMOTIDINE 20 MG TAB PO SCH (08:26)
[2017-05-02] MEDS: Acetaminophen-Codeine 300-30mg TAB PO PRN (08:26)
[2017-05-02] MEDS: metFORMIN 500 MG TAB PO SCH (08:26)
[2017-05-02] MEDS: GABAPENTIN 100 MG CAP PO SCH (08:26)
[2017-05-02] MEDS: LOSARTAN 50 MG TAB PO SCH (08:26)
[2017-05-02] MEDS: FLUTICASONE 50MCG/SPRAY NASAL 16GM EA NOSTRIL SCH (08:27)
[2017-05-02 08:30] VITALS: PULSE 60
--- NOTE | 2017-05-02 08:49 | P.PN ---
Subjective Progress Note Date: 05/01/17 Principal diagnosis: Gi bleed S/p colonoscopy with polypectomy x 2. Painless blood BM Sunday with hemoglobin 9.3. Brown colored BM yesterday. No fever or abdominal pain. Hemoglobin 8.1. Objective - Vital Signs Vital signs: Vital Signs Temp 99.3 F 05/01/17 11:35 Pulse 69 05/01/17 11:35 Resp 18 05/01/17 11:35 BP 132/66 05/01/17 11:35 Pulse Ox 98 05/01/17 11:35 Intake & Output 04/30/17 05/01/17 05/01/17 18:59 06:59 18:59 Intake Total 100 360 Output Total 500 0 Balance -400 0 360 Weight 82.5 kg Intake: Oral 100 360 Output: Urine 500 Stool 0 Other: Voiding Method Incontinent Incontinent # Voids 2 2 - Exam General appearance: The patient is alert, oriented, in no acute distress. Hard of hearing. HET: Head is normocephalic and atraumatic. Pupils are equal and reactive. Oropharynx is clear without lesions. Neck: Supple without lymphadenopathy. Trachea midline. Heart: S1 S2. Regular rate and rhythm. Lungs: No crackles or wheezes are heard. Abdomen: Soft, nontender, nondistended with bowel sounds. No peritoneal signs. No palpable organomegaly or masses. Extremities: Normal skin color and turgor. No cyanosis, rash, ulceration, clubbing, or edema. Radial and pedal pulses are 2/4 bilaterally. Neurological: No focal deficits. Strength and sensation are grossly intact. - Labs CBC & Chem 7: 05/01/17 11:24 05/01/17 05:30 Labs: Abnormal Lab Results - Last 24 Hours (Table) 04/30/17 04/30/17 05/01/17 Range/Units 16:44 20:56 05:30 RBC 2.92 L (3.80-5.40) m/uL Hgb 8.1 L (11.4-16.0) gm/dL Hct 25.4 L (34.0-46.0) % Chloride (98-107) mmol/L Glucose (74-99) mg/dL POC Glucose (mg/dL) 120 H 184 H (75-99) mg/dL 05/01/17 05/01/17 05/01/17 Range/Units 05:30 06:03 11:24 RBC 2.78 L (3.80-5.40) m/uL Hgb 7.8 L (11.4-16.0) gm/dL Hct 24.4 L (34.0-46.0) % Chloride 108 H (98-107) mmol/L Glucose 132 H (74-99) mg/dL POC Glucose (mg/dL) 138 H (75-99) mg/dL 05/01/17 Range/Units 11:48 RBC (3.80-5.40) m/uL Hgb (11.4-16.0) gm/dL Hct (34.0-46.0) % Chloride (98-107) mmol/L Glucose (74-99) mg/dL POC Glucose (mg/dL) 174 H (75-99) mg/dL Microbiology - Last 24 Hours (Table) 04/28/17 15:10 Urine Culture - Final Urine,Catheterized Klebsiella pneumoniae Assessment and Plan (1) Gastrointestinal hemorrhage Narrative/Plan: 86-year-old female admitted with acute onset of painless burgundy-colored bowel movements secondary to colonic diverticulosis status post colonoscopy with sigmoid polypectomy 2. Active GI bleed patient passed a very large burgundy multiple clot bowel movement this morning suspect recurrent diverticular bleed possible polypectomy bleed possible combination of both; no active GI bleed > 48 hours. Current Visit: Yes Status: Acute Code(s): K92.2 - GASTROINTESTINAL HEMORRHAGE, UNSPECIFIED SNOMED Code(s): 45019404 (2) Acute blood loss anemia Current Visit: Yes Status: Acute Code(s): D62 - ACUTE POSTHEMORRHAGIC ANEMIA SNOMED Code(s): 108928583 Plan: 1. Observe. CBC in am. Will reevaluate. Repeat endoscopy not planned at this time; no overt active GI bleed.
--- NOTE | 2017-05-02 08:51 | P.PN ---
Subjective Progress Note Date: 05/02/17 Principal diagnosis: Gi bleed S/p colonoscopy with polypectomy x 2. Painless blood BM Sunday with hemoglobin 9.3. Brown colored BM yesterday. No fever or abdominal pain. Hemoglobin 8.1 yesterday morning repeat 7.8 presently 7.9. No recurrence of rectal bleeding tolerating regular diet. Requesting discharge. Objective - Vital Signs Vital signs: Vital Signs Temp 98.7 F 05/02/17 04:00 Pulse 60 05/02/17 04:00 Resp 18 05/02/17 04:00 BP 129/64 05/02/17 00:00 Pulse Ox 94 L 05/02/17 04:00 Intake & Output 05/01/17 05/02/17 05/02/17 18:59 06:59 18:59 Intake Total 830 200 Output Total 500 0 Balance 330 200 Weight 82 kg Intake: Oral 830 200 Output: Urine 500 Stool 0 Other: Voiding Method Incontinent Incontinent # Voids 2 - Exam General appearance: The patient is alert, oriented, in no acute distress. Hard of hearing. HET: Head is normocephalic and atraumatic. Pupils are equal and reactive. Oropharynx is clear without lesions. Neck: Supple without lymphadenopathy. Trachea midline. Heart: S1 S2. Regular rate and rhythm. Lungs: No crackles or wheezes are heard. Abdomen: Soft, nontender, nondistended with bowel sounds. No peritoneal signs. No palpable organomegaly or masses. Extremities: Normal skin color and turgor. No cyanosis, rash, ulceration, clubbing, or edema. Radial and pedal pulses are 2/4 bilaterally. Neurological: No focal deficits. Strength and sensation are grossly intact. - Labs CBC & Chem 7: 05/02/17 05:34 05/02/17 05:34 Labs: Abnormal Lab Results - Last 24 Hours (Table) 05/01/17 05/01/17 05/01/17 Range/Units 11:24 11:48 17:02 RBC 2.78 L (3.80-5.40) m/uL Hgb 7.8 L (11.4-16.0) gm/dL Hct 24.4 L (34.0-46.0) % Glucose (74-99) mg/dL POC Glucose (mg/dL) 174 H 158 H (75-99) mg/dL 03/06/18 03/07/18 03/07/18 Range/Units 21:09 05:34 05:34 RBC 2.82 L (3.80-5.40) m/uL Hgb 7.9 L (11.4-16.0) gm/dL Hct 24.4 L (34.0-46.0) % Glucose 127 H (74-99) mg/dL POC Glucose (mg/dL) 167 H (75-99) mg/dL 05/02/17 Range/Units 05:58 RBC (3.80-5.40) m/uL Hgb (11.4-16.0) gm/dL Hct (34.0-46.0) % Glucose (74-99) mg/dL POC Glucose (mg/dL) 141 H (75-99) mg/dL Assessment and Plan (1) Gastrointestinal hemorrhage Narrative/Plan: 86-year-old female admitted with acute onset of painless burgundy-colored bowel movements secondary to colonic diverticulosis status post colonoscopy with sigmoid polypectomy 2. Active GI bleed patient passed a very large burgundy multiple clot bowel movement this morning suspect recurrent diverticular bleed possible polypectomy bleed possible combination of both; no active GI bleed > 72 hours. Current Visit: Yes Status: Acute Code(s): K92.2 - GASTROINTESTINAL HEMORRHAGE, UNSPECIFIED SNOMED Code(s): 67260106 (2) Acute blood loss anemia Current Visit: Yes Status: Acute Code(s): D62 - ACUTE POSTHEMORRHAGIC ANEMIA SNOMED Code(s): 760467794 Plan: 1. Discharge per medicine. Follow PCP as advised with repeat CBC 3-5 days. Assessment and plan of care discussed with Dr. Cantor
[2017-05-02 10:11] VITALS: BMI 29.2
--- NOTE | 2017-05-02 10:56 | P.DS ---
Providers Date of admission: 04/25/17 03:40 Expected date of discharge: 05/02/17 Attending physician: Caleb Schafer Consults: 04/25/17 04:09 Consult Physician Urgent Consulting Provider: Christopher Rivera Consult Reason/Comments: GI Bleeding Do you want consulting provider notified?: Already Contacted 04/27/17 11:21 Consult Physician Routine Consulting Provider: Christopher Rivera Consult Reason/Comments: ICU management Do you want consulting provider notified?: Yes 04/27/17 11:33 Consult Physician Stat Consulting Provider: Gelacio Novak Consult Reason/Comments: GI bleed Do you want consulting provider notified?: Yes Primary care physician: Caleb Schafer Hospital Course: 86-year-old female was admitted through the emergency room with complaints of bloody stool asymptomatic. Patient was seen by surgery and gastroenterology patient had colonoscopy with polypectomy. Patient was transfused with 2 units of blood. Patient was reevaluated today by gastroenterology and they cleared for discharge home with careful follow-up with CBC and to 3 days patient was also treated for urinary tract infection will go home on Augmentin. Patient is to hold Plavix until seen by family physician Assessment lower gastrointestinal bleeding post polypectomy Anemia acute blood loss Post colonoscopy and polypectomy Urinary tract infection Dementia Diabetes type 2 Hyperlipidemia Rheumatoid arthritis Lupus history of cholecystectomy appendectomy and hernia repair Plan Follow-up Sunday with family physician for CBC We'll continue with Augmentin for urinary tract infection Total Plavix until seen by family physician Patient Condition at Discharge: Good Plan - Discharge Summary Discharge Rx Participant: Yes New Discharge Prescriptions: New Acetaminophen Tab [Tylenol] 650 mg PO Q6HR PRN tab PRN Reason: Mild Pain Or Fever > 100.5 Amoxic-Pot Clav 875-125Mg [Augmentin 875-125] 1 tab PO Q12HR 10 Days #20 tablet Famotidine [Pepcid] 20 mg PO DAILY #60 tab Continue Losartan [Cozaar] 50 mg PO DAILY Simvastatin [Zocor] 40 mg PO HS Sertraline [Zoloft] 50 mg PO PC-BRKFST Nitroglycerin Sl Tabs [Nitrostat] 0.4 mg SUBLINGUAL Q5M PRN PRN Reason: Chest Pain Cholecalciferol (Vitamin D3) [Vitamin D3] 2,000 unit PO DAILY metFORMIN HCL 1,000 mg PO BID cloNIDine HCL [Catapres] 0.1 mg PO DAILY PRN PRN Reason: Blood Pressure Gabapentin [Neurontin] 100 mg PO TID Fluticasone Nasal [place] [Flonase Nasal [place]] 1 spr EA NOSTRIL DAILY Clopidogrel [Plavix] 75 mg PO DAILY cloNIDine 0.2 MG/24HR PATCH [Catapres-TTS] 1 patch TRANSDERM TH Atenolol [Tenormin] 25 mg PO HS ALPRAZolam [Xanax] 1 mg PO HS Memantine HCl/Donepezil HCl [Namzaric Titration Pack] 1 cap PO DAILY Discharge Medication List ALPRAZolam [Xanax] 1 mg PO HS 11/24/16 [History] Atenolol [Tenormin] 25 mg PO HS 11/24/16 [History] Cholecalciferol (Vitamin D3) [Vitamin D3] 2,000 unit PO DAILY 11/24/16 [History] Clopidogrel [Plavix] 75 mg PO DAILY 11/24/16 [History] Fluticasone Nasal [place] [Flonase Nasal [place]] 1 spr EA NOSTRIL DAILY 11/24/16 [ History] Gabapentin [Neurontin] 100 mg PO TID 11/24/16 [History] Losartan [Cozaar] 50 mg PO DAILY 11/24/16 [History] Memantine HCl/Donepezil HCl [Namzaric Titration Pack] 1 cap PO DAILY 11/24/16 [ History] Nitroglycerin Sl Tabs [Nitrostat] 0.4 mg SUBLINGUAL Q5M PRN 11/24/16 [History] Sertraline [Zoloft] 50 mg PO PC-BRKFST 11/24/16 [History] Simvastatin [Zocor] 40 mg PO HS 11/24/16 [History] cloNIDine 0.2 MG/24HR PATCH [Catapres-TTS] 1 patch TRANSDERM TH 11/24/16 [ History] cloNIDine HCL [Catapres] 0.1 mg PO DAILY PRN 11/24/16 [History] metFORMIN HCL 1,000 mg PO BID 11/24/16 [History] Acetaminophen Tab [Tylenol] 650 mg PO Q6HR PRN tab 05/02/17 [Rx] Amoxic-Pot Clav 875-125Mg [Augmentin 875-125] 1 tab PO Q12HR 10 Days #20 tablet 03/07/18 [Rx] Famotidine [Pepcid] 20 mg PO DAILY #60 tab 05/02/17 [Rx] Follow up Appointment(s)/Referral(s): Caleb Schafer MD [Primary Care Provider] - 1-2 days
[2017-05-02 11:47] LABS: Glucose,Whole Blood 167 mg/dL (75-99)
[2017-05-02 13:01] VITALS: BP 118/72; TEMP 97.6
== END 2017-05-02 14:00 | disposition home health service (06) | DRG 378 ==
LOC: EC 00:55 → 6ICU 03:40 → 6SEL 14:29 → 6ICU 14:30 → 3SUR 04-26 16:42 → 6SEL 04-27 11:12
PROVIDERS: ADMIT Family Medicine; ATTEND Family Medicine
PROC: 30233N1 Transfusion of Nonautologous Red Blood Cells into Peripheral Vein, Percutaneous Approach (ICD-10-PCS; 2017-04-26)
PROC: 0DBN8ZX Excision of Sigmoid Colon, Via Natural or Artificial Opening Endoscopic, Diagnostic (ICD-10-PCS; principal; 2017-04-26 12:30)
DX: K57.31 Diverticulosis of large intestine without perforation or abscess with bleeding (principal); D62 Acute posthemorrhagic anemia; N39.0 Urinary tract infection, site not specified; E11.42 Type 2 diabetes mellitus with diabetic polyneuropathy; M32.9 Systemic lupus erythematosus, unspecified; F03.90 Unspecified dementia, unspecified severity, without behavioral disturbance, psychotic disturbance, mood disturbance, and anxiety; M06.9 Rheumatoid arthritis, unspecified; D12.5 Benign neoplasm of sigmoid colon; E78.5 Hyperlipidemia, unspecified; F32.9 Major depressive disorder, single episode, unspecified; F41.9 Anxiety disorder, unspecified; I10 Essential (primary) hypertension; K64.8 Other hemorrhoids; K91.840 Postprocedural hemorrhage of a digestive system organ or structure following a digestive system procedure; M19.90 Unspecified osteoarthritis, unspecified site; R32 Unspecified urinary incontinence; R19.7 Diarrhea, unspecified; Z79.02 Long term (current) use of antithrombotics/antiplatelets; Z79.899 Other long term (current) drug therapy; Z79.84 Long term (current) use of oral hypoglycemic drugs; Z87.01 Personal history of pneumonia (recurrent); Z86.14 Personal history of Methicillin resistant Staphylococcus aureus infection; Z90.49 Acquired absence of other specified parts of digestive tract; Y83.8 Other surgical procedures as the cause of abnormal reaction of the patient, or of later complication, without mention of misadventure at the time of the procedure
CPT/HCPCS: 36415; 45385; 80048; 80053; 81001; 82550; 82553; 83735; 84100; 84484; 85025; 85610; 85730; 86850; 86900; 86901; 86920; 87077; 87086; 87186; 88305; 93005; 99285